=== PATIENT | female | born 1980 | race Caucasian/White ===

== ENCOUNTER 2017-01-18 11:55 | Emergency (ER) | payer SELFPAY ==
[~2017-01-18] VITALS: Ht 167.6 cm; Wt 90.0 kg
[~2017-01-18 11:55] MED LIST: CLON.2 PO; METH40TA9 PO; PHEN37.5 PO; PROM25TA5 PO; SYNT300T PO; XANA1TAB6 PO
[2017-01-18 11:57] VITALS: BP 141/87; PULSE 89; RESP 20; TEMP 97.8; O2SAT 97
[2017-01-18] MEDS ORDERED: SODIUM CHLOR 0.9% 1000 ML INJ 1,000 ML IV SCH (12:23)
[2017-01-18] MEDS ORDERED: XANA2TAB2 PO (12:25)
[2017-01-18] MEDS ORDERED: KETOROLAC TROMETHAMINE 30 MG/ML (IVP) VIAL IVP ONE (12:30)
[2017-01-18] MEDS ORDERED: SODIUM CHLORIDE 0.9% FLUSH 5 ML FLUSH IVF PRN (12:30)
[2017-01-18] MEDS ORDERED: ONDANSETRON HCL 4 MG/2 ML VIAL IVP ONE (12:30)
--- NOTE | 2017-01-18 12:42 | PD ---
HPI Chief Complaint: GI Complaint Time Seen by Provider: 12:14 Travel History International Travel<30 days: No Contact w/Intl Traveler<30days: No Traveled to known affect area: No History of Present Illness HPI This is a 36-year-old female presents with epigastric pain sharp since 0400 this morning. SHe comes in with nausea and vomiting production of yellow stomach acid. No fevers no change in bowel habits no vaginal bleeding or vaginal discharge or painful urination. Patient dishes never had these symptoms in the past. Denies change in bowel habits. States the pain is sharp and radiates to her back. PFSH Past Medical History Arthritis: No Asthma: No Heart Rhythm Problems: No Cardiovascular Problems: No High Cholesterol: No Chest Pain: No Congestive Heart Failure: No COPD: No Cerebrovascular Accident: No Diminished Hearing: No Fibromyalgia: Yes Gastrointestinal Disorders: No GERD: Yes Genitourinary: Yes Headaches: Yes Hepatitis: No Hiatal Hernia: No Hypertension: No Kidney Stones: Yes Musculoskeletal: Yes (NECK) Neurologic: Yes Reproductive: Yes Respiratory: No Migraines: Yes Myocardial Infarction: No Renal Failure: No Seizures: No Sleep Apnea: No Ulcer: No ?: Not LMP: CURRENTLY ON PERIOD Menopausal: No : 3 Para: 0 Miscarriage: 1 : 2 Dilation and Curettage (D&C): Yes Past Surgical History Abdominal Surgery: No Appendectomy: No Cardiac Surgery: No Cholecystectomy: No Ear Surgery: No Endocrine Surgery: No Eye Surgery: No Genitourinary Surgery: No Gynecologic Surgery: Yes (DNC) Neurologic Surgery: No Oral Surgery: Yes (TOOTH EXTRACTIONS) Thoracic Surgery: No Social History Alcohol Use: No Tobacco Use: Yes (5 cigs/day) Substance Use: Yes (methadone hx) Allergies-Medications (Allergen,Severity, Reaction): Coded Allergies: No Known Allergies (Verified , 03/05/16) Reported Meds & Prescriptions Reported Meds & Active Scripts Active Zofran Odt (Ondansetron Odt) 4 Mg Tab 4 Mg SL Q6HR PRN Reported Xanax (Alprazolam) 2 Mg Tab 2 Mg PO DAILY PRN Review of Systems Except as stated in HPI: all other systems reviewed are Neg Physical Exam Narrative GENERAL: Well-developed well-nourished, vomiting yellow material in the emergency department. SKIN: Warm and dry. HEAD: Atraumatic. Normocephalic. EYES: Pupils equal and round. No scleral icterus. No injection or drainage. ENT: No nasal bleeding or discharge. Mucous membranes pink and moist. NECK: Trachea midline. No JVD. CARDIOVASCULAR: Regular rate and rhythm. No murmur appreciated. RESPIRATORY: No accessory muscle use. Clear to auscultation. Breath sounds equal bilaterally. GASTROINTESTINAL: Abdomen soft, minimally tender in epigastric area, nondistended. Hepatic and splenic margins not palpable. No rebound no percussive tenderness, psoas and obturator signs negative, Ferro sign negative , no tenderness at McBurney's point. MUSCULOSKELETAL: No obvious deformities. No clubbing. No cyanosis. No edema. NEUROLOGICAL: Awake and alert. No obvious cranial nerve deficits. Motor grossly within normal limits. Normal speech. PSYCHIATRIC: Appropriate mood and affect; insight and judgment normal. Data Data Last Documented VS Vital Signs Date Time Temp Pulse Resp B/P Pulse Ox O2 Delivery O2 Flow Rate FiO2 01/18/17 12:25 Room Air 01/18/17 11:57 97.8 89 20 141/87 97 Orders Complete Blood Count With Diff (01/18/17 12:23) Comprehensive Metabolic Panel (01/18/17 12:23) Lipase (01/18/17 12:23) Lactic Acid (01/18/17 12:23) Prothrombin Time / Inr (Pt) (01/18/17 12:23) Act Partial Throm Time (Ptt) (01/18/17 12:23) Urinalysis - C+S If Indicated (01/18/17 12:23) Iv Access Insert/Monitor (01/18/17 12:23) Ecg Monitoring (01/18/17 12:23) Oximetry (01/18/17 12:23) Ondansetron Inj (Zofran Inj) (01/18/17 12:30) Sodium Chlor 0.9% 1000 Ml Inj (Ns 1000 M (01/18/17 12:23) Sodium Chloride 0.9% Flush (Ns Flush) (01/18/17 12:30) Ketorolac Inj (Toradol Inj) (01/18/17 12:30) Ed Urine Pregnancytest Poc (01/18/17 12:23) Sodium Chlor 0.9% 1000 Ml Inj (Ns 1000 M (01/18/17 13:30) Ed Poc Ultrasound (01/18/17 ) Electrocardiogram (01/18/17 12:38) Labs Laboratory Tests Test 01/18/17 01/18/17 12:30 13:45 White Blood Count 12.1 TH/MM3 Red Blood Count 5.15 MIL/MM3 Hemoglobin 14.7 GM/DL Hematocrit 44.5 % Mean Corpuscular Volume 86.4 FL Mean Corpuscular Hemoglobin 28.6 PG Mean Corpuscular Hemoglobin 33.1 % Concent Red Cell Distribution Width 13.9 % Platelet Count 292 TH/MM3 Mean Platelet Volume 9.1 FL Neutrophils (%) (Auto) 70.6 % Lymphocytes (%) (Auto) 22.6 % Monocytes (%) (Auto) 5.4 % Eosinophils (%) (Auto) 0.7 % Basophils (%) (Auto) 0.7 % Neutrophils # (Auto) 8.6 TH/MM3 Lymphocytes # (Auto) 2.7 TH/MM3 Monocytes # (Auto) 0.7 TH/MM3 Eosinophils # (Auto) 0.1 TH/MM3 Basophils # (Auto) 0.1 TH/MM3 CBC Comment DIFF FINAL Differential Comment Prothrombin Time 11.4 SEC Prothromb Time International 1.0 RATIO Ratio Activated Partial 26.1 SEC Thromboplast Time Sodium Level 141 MEQ/L Potassium Level 3.2 MEQ/L Chloride Level 105 MEQ/L Carbon Dioxide Level 27.1 MEQ/L Anion Gap 9 MEQ/L Blood Urea Nitrogen 12 MG/DL Creatinine 1.07 MG/DL Estimat Glomerular Filtration 57 ML/MIN Rate Random Glucose 96 MG/DL Lactic Acid Level 1.6 mmol/L Calcium Level 9.0 MG/DL Total Bilirubin 0.4 MG/DL Aspartate Amino Transf 7 U/L (AST/SGOT) Alanine Aminotransferase 18 U/L (ALT/SGPT) Alkaline Phosphatase 59 U/L Total Protein 7.5 GM/DL Albumin 4.2 GM/DL Lipase 194 U/L Urine Color YELLOW Urine Turbidity HAZY Urine pH 6.0 Urine Specific [place] 1.023 Urine Protein TRACE mg/dL Urine Glucose (UA) NEG mg/dL Urine Ketones NEG mg/dL Urine Occult Blood TRACE Urine Nitrite NEG Urine Bilirubin NEG Urine Urobilinogen LESS THAN 2.0 MG/DL Urine Leukocyte Esterase NEG Urine RBC 3 /hpf Urine WBC 4 /hpf Urine Squamous Epithelial 2 /hpf Cells Urine Bacteria RARE /hpf Urine Mucus MANY /lpf Microscopic Urinalysis Comment CULT NOT INDICATED MDM Medical Decision Making Medical Screen Exam Complete: Yes Emergency Medical Condition: Yes Interpretation(s) EKG shows normal sinus rhythm normal axis normal R-wave progression. No concerning ST T changes, intervals within normal limits. This normal EKG. Differential Diagnosis Cholecystitis, pancreatitis, gastritis, gastroenteritis, . Narrative Course Patient was roomed in the emergency department, she was given Zofran and normal saline as well as Toradol. On reassessment she states her symptoms of completely resolved. On further history the patient states that she smoked some marijuana last night which she was not quite sure was marijuana. She thinks this might have contributed to her nausea. Patient also states she's not had her methadone in 3 months She is trying to give it up. She is wondering if she still withdrawing off of methadone. Her CBC and CMP are completely reassuring. UA and urine test negative. Her repeat abdominal exam is benign. Patient is stable for discharge at this time recommended follow-up with Gen. surgery as biliary colic is a possibility however there is no convincing evidence for cholecystitis. Per Procedures Procedure Narrative Bedside ultrasound: Is obtained of the gallbladder and the patient in supine position, ultrasonic graphic Ferro sign was negative, there are for non- impacted gallstones, no gallbladder wall thickening and no pericholecystic fluid. Diagnosis Primary Impression: Nausea & vomiting Qualified Code: R11.2 - Nausea and vomiting, intractability of vomiting not specified, unspecified vomiting type Referrals: Morales Dsouza MD Scripts Ondansetron Odt (Zofran Odt)4 Mg Tab4 Mg SL Q6HR PRN (Nausea/Vomiting) #30 TAB Ref 0 Prov:Israel Canela MD 01/18/17 Disposition: 01 DISCHARGE HOME Condition: Stable Israel Canela MD Jan 18, 2017 12:42
[2017-01-18 12:48] LABS: AUTOMATED NEUTROPHIL # 8.6 TH/MM3 (1.8-7.7); BASOPHIL # 0.1 TH/MM3 (0-0.2); BASOPHIL % 0.7 % (0.0-2.0); EOSINOPHIL # 0.1 TH/MM3 (0-0.4); EOSINOPHIL % 0.7 % (0.0-4.0); HEMATOCRIT 44.5 % (35.0-46.0); HEMO FLAGS DIFF FINAL; LYMPH % 22.6 % (9.0-44.0); LYMPHOCYTE # 2.7 TH/MM3 (1.0-4.8); MEAN CELL VOLUME 86.4 FL (80.0-100.0); MEAN CORPUSCULAR HEMOGLOBIN 28.6 PG (27.0-34.0); MEAN CORPUSCULAR HGB CONC 33.1 % (32.0-36.0); MONO % 5.4 % (0.0-8.0); NEUT % 70.6 % (16.0-70.0); PLATELET COUNT 292 TH/MM3 (150-450); RED BLOOD COUNT 5.15 MIL/MM3 (4.00-5.30); RED CELL DISTRIBUTION WIDTH 13.9 % (11.6-17.2); WHITE BLOOD COUNT 12.1 TH/MM3 (4.0-11.0)
[2017-01-18 12:59] LABS: ALT (GPT) 18 U/L (10-53); ANION GAP 9 MEQ/L (5-15); AST (GOT) 7 U/L (15-37); BICARBONATE 27.1 MEQ/L (21.0-32.0); BLOOD UREA NITROGEN 12 MG/DL (7-18); CHLORIDE 105 MEQ/L (98-107); GLOMERULAR FILTRATION RATE 57 ML/MIN (>89); POTASSIUM 3.2 MEQ/L (3.5-5.1); SODIUM (NA) 141 MEQ/L (136-145)
[2017-01-18 13:00] LABS: APTT (PATIENT) 26.1 SEC (24.3-30.1); PROTHROMBIN TIME - PATIENT 11.4 SEC (9.8-11.6)
[2017-01-18 13:02] LABS: ALKALINE PHOSPHATASE 59 U/L (45-117); TOTAL BILIRUBIN ADULT 0.4 MG/DL (0.2-1.0)
[2017-01-18] MEDS ORDERED: SODIUM CHLOR 0.9% 1000 ML INJ 1,000 ML IV ONE (13:30)
[2017-01-18 14:18] LABS: BACTERIA, URINE RARE /hpf; BLOOD, URINE TRACE (NEG); GLUCOSE,URINE NEG (NEG); KETONE, URINE NEG (NEG); MUCUS URINE MANY /lpf (OCC); NITRITE,URINE NEG (NEG); SQUAMOUS EPITHELIAL CELL URINE 2 /hpf (0-5); URINE COLOR YELLOW (YELLW/STRAW)
[2017-01-18 14:24] LABS: COMMENT (UR) CULT NOT INDICATED; CULTURE IF INDICATED CULT NOT INDICATED
[2017-01-18] MEDS ORDERED: ZOFR4TAB3 SL (14:52)
--- NOTE | 2017-01-19 14:11 | EKG ---
Date Performed: 01/18/2017 Time Performed: 12:38:50 PTAGE: 36 years EKG: Sinus bradycardia Within normal limits Compared to PREVIOUS TRACING no significant change PREVIOUS TRACIN08/05/09 DOCTOR: Tanner Blanchard Interpretating Date/Time 01/19/2017 14:10:32
[2017-01-19] MEDS ORDERED: IBUP-988 PO (17:31)
[2017-01-19] MEDS ORDERED: GNP3TAB PO (17:31)
== END 2017-01-18 16:34 | disposition home or self-care (01) ==
LOC: NEPB 11:55
DX: R11.2 Nausea with vomiting, unspecified (principal); R10.13 Epigastric pain; Z72.0 Tobacco use; M79.7 Fibromyalgia; K21.9 Gastro-esophageal reflux disease without esophagitis; Z87.442 Personal history of urinary calculi
CPT/HCPCS: 80053; 81001; 83605; 83690; 84703; 85025; 85610; 85730; 93005; 96361; 96374; 96375; 99284; J1885; J2405; J7030

== ENCOUNTER 2017-01-19 15:56 | Inpatient (IN) | payer OTHER ==
[~2017-01-19] VITALS: Ht 167.6 cm; Wt 86.0 kg
[~2017-01-19 15:56] MED LIST changes: -CLON.2 PO; -METH40TA9 PO; -PHEN37.5 PO; -PROM25TA5 PO; -SYNT300T PO; -XANA1TAB6 PO; +XANA2TAB2 PO; +ZOFR4TAB3 SL
[2017-01-19 16:11] VITALS: BP 133/83; PULSE 89; RESP 18; TEMP 98; O2SAT 99
--- NOTE | 2017-01-19 16:34 | PD ---
HPI Chief Complaint: Psychiatric Symptoms Time Seen by Provider: 16:10 Travel History International Travel<30 days: No Contact w/Intl Traveler<30days: No Traveled to known affect area: No History of Present Illness HPI 36-year-old female presents under [place] act initiated by the Police Department. The patient reports that she's been under a lot of stress recently in regards to her being situation. Today she had an argument with her fianc. After her fianc left the patient is feeling depressed she's had some text messages to her fianc implying that she was going to kill herself. The fianc called the police. He fei was concerned that she may try to overdose on some sleeping medication. She reports that she is prescribed Xanax which did take her normal 1 mg dose today. She also occasionally uses melatonin Tylenol PM for sleeping but denies any ingestions of these today. She denies any attempts at harming herself today. Denies any illicit drug or alcohol use. Her only medical complaint is of intermittent right upper quadrant abdominal pain for the past 3 months. The patient was seen here yesterday for evaluation of this issue. She had lab work and a bedside ultrasound there was no evidence of cholecystitis on ultrasound. She has no other complaints. PFSH Past Medical History Arthritis: No Asthma: No Heart Rhythm Problems: No Cardiovascular Problems: No High Cholesterol: No Chest Pain: No Congestive Heart Failure: No COPD: No Cerebrovascular Accident: No Diminished Hearing: No Fibromyalgia: Yes Gastrointestinal Disorders: No GERD: Yes Genitourinary: Yes Headaches: Yes Hepatitis: No Hiatal Hernia: No Hypertension: No Kidney Stones: Yes Musculoskeletal: Yes (NECK) Neurologic: Yes Reproductive: Yes Respiratory: No Migraines: Yes Myocardial Infarction: No Renal Failure: No Seizures: No Sleep Apnea: No Ulcer: No ?: Not LMP: 01/14/17 Menopausal: No : 3 Para: 0 Miscarriage: 1 : 2 Dilation and Curettage (D&C): Yes Past Surgical History Abdominal Surgery: No Appendectomy: No Cardiac Surgery: No Cholecystectomy: No Ear Surgery: No Endocrine Surgery: No Eye Surgery: No Genitourinary Surgery: No Gynecologic Surgery: Yes (DNC) Neurologic Surgery: No Oral Surgery: Yes (TOOTH EXTRACTIONS) Thoracic Surgery: No Social History Alcohol Use: No Tobacco Use: Yes (5 cigs/day) Substance Use: Yes (methadone hx) Allergies-Medications (Allergen,Severity, Reaction): Coded Allergies: No Known Allergies (Verified , 01/19/17) Reported Meds & Prescriptions Reported Meds & Active Scripts Active Zofran Odt (Ondansetron Odt) 4 Mg Tab 4 Mg SL Q6HR PRN Reported Advil (Ibuprofen) 200 Mg Tab 800 Mg PO TID PRN Gnp Melatonin (Melatonin) 3 Mg Tab 3 Mg PO HS Xanax (Alprazolam) 2 Mg Tab 2 Mg PO DAILY PRN Review of Systems Except as stated in HPI: all other systems reviewed are Neg Physical Exam Narrative GENERAL: Well-nourished female in no acute distress SKIN: Warm and dry. HEAD: Atraumatic. Normocephalic. EYES: Pupils equal and round. No scleral icterus. No injection or drainage. ENT: No nasal bleeding or discharge. Mucous membranes pink and moist. NECK: Trachea midline. No JVD. CARDIOVASCULAR: Regular rate and rhythm. No murmur appreciated. RESPIRATORY: No accessory muscle use. Clear to auscultation. Breath sounds equal bilaterally. GASTROINTESTINAL: Abdomen soft, mild right upper quadrant tenderness without guarding. MUSCULOSKELETAL: No obvious deformities. No edema. NEUROLOGICAL: Awake and alert. No obvious cranial nerve deficits. Motor grossly within normal limits. Normal speech. PSYCHIATRIC: Appropriate mood and affect; insight and judgment normal. Data Data Last Documented VS Vital Signs Date Time Temp Pulse Resp B/P Pulse Ox O2 Delivery O2 Flow Rate FiO2 01/19/17 16:16 72 01/19/17 16:11 98.0 18 133/83 99 Orders Complete Blood Count With Diff (01/19/17 16:15) Comprehensive Metabolic Panel (01/19/17 16:15) Psych Screen (01/19/17 16:15) Drug Screen, Random Urine (01/19/17 16:15) Alcohol (Ethanol) (01/19/17 16:15) Salicylates (Aspirin) (01/19/17 16:15) Tylenol (Acetaminophen) (01/19/17 16:15) Us Abdomen Gallbladder (01/19/17 ) Piperacil-Tazo 3.375 Gm Premix (Zosyn 3. (01/19/17 18:00) Ondansetron Inj (Zofran Inj) (01/19/17 18:00) Sodium Chlor 0.9% 1000 Ml Inj (Ns 1000 M (01/19/17 17:58) Consult General Surgery (01/19/17 ) (Hub Use Only)Inp Phy Cons/Ref (01/19/17 ) Morphine Inj (Morphine Inj) (01/19/17 19:00) Labs Laboratory Tests Test 01/19/17 01/19/17 17:00 19:20 White Blood Count 8.1 TH/MM3 Red Blood Count 4.68 MIL/MM3 Hemoglobin 13.9 GM/DL Hematocrit 40.6 % Mean Corpuscular Volume 86.8 FL Mean Corpuscular Hemoglobin 29.8 PG Mean Corpuscular Hemoglobin 34.3 % Concent Red Cell Distribution Width 14.2 % Platelet Count 266 TH/MM3 Mean Platelet Volume 9.5 FL Neutrophils (%) (Auto) 58.6 % Lymphocytes (%) (Auto) 29.3 % Monocytes (%) (Auto) 6.8 % Eosinophils (%) (Auto) 4.1 % Basophils (%) (Auto) 1.2 % Neutrophils # (Auto) 4.7 TH/MM3 Lymphocytes # (Auto) 2.4 TH/MM3 Monocytes # (Auto) 0.5 TH/MM3 Eosinophils # (Auto) 0.3 TH/MM3 Basophils # (Auto) 0.1 TH/MM3 CBC Comment DIFF FINAL Differential Comment Sodium Level 143 MEQ/L Potassium Level 3.4 MEQ/L Chloride Level 105 MEQ/L Carbon Dioxide Level 27.9 MEQ/L Anion Gap 10 MEQ/L Blood Urea Nitrogen 7 MG/DL Creatinine 0.99 MG/DL Estimat Glomerular Filtration 63 ML/MIN Rate Random Glucose 78 MG/DL Calcium Level 8.7 MG/DL Total Bilirubin 0.6 MG/DL Aspartate Amino Transf 9 U/L (AST/SGOT) Alanine Aminotransferase 17 U/L (ALT/SGPT) Alkaline Phosphatase 63 U/L Total Protein 6.9 GM/DL Albumin 3.4 GM/DL Salicylates Level LESS THAN 1.7 MG/DL Acetaminophen Level LESS THAN 2.0 MCG/ML Ethyl Alcohol Level LESS THAN 3 MG/DL Urine Opiates Screen NEG Urine Barbiturates Screen NEG Urine Amphetamines Screen NEG Urine Benzodiazepines Screen POS Urine Cocaine Screen POS Urine Cannabinoids Screen NEG MDM Medical Decision Making Medical Screen Exam Complete: Yes Emergency Medical Condition: Yes Medical Record Reviewed: Yes Differential Diagnosis Adjustment reaction, major depressive disorder, acute psychosis, substance- induced disorder, depressive disorder not otherwise specified Narrative Course 36-year-old female presents under a [place] act for psychiatric evaluation. Mental health screening discussed with the patient. Psychiatric screen ordered. The patient's right upper quadrant ultrasound suspicious for cholecystitis. Dr. Lockett was counseled that he will come see the patient. Dr. Lockett will be consulted on this patient. She was given a dose of IV Zosyn. The patient was admitted medically. Diagnosis Primary Impression: Cholecystitis Admitting Information Admitting Physician Requests: Observation Patrice Vargas Jan 19, 2017 16:34
[2017-01-19 17:24] LABS: AUTOMATED NEUTROPHIL # 4.7 TH/MM3 (1.8-7.7); BASOPHIL # 0.1 TH/MM3 (0-0.2); BASOPHIL % 1.2 % (0.0-2.0); EOSINOPHIL # 0.3 TH/MM3 (0-0.4); EOSINOPHIL % 4.1 % (0.0-4.0); HEMATOCRIT 40.6 % (35.0-46.0); HEMO FLAGS DIFF FINAL; LYMPH % 29.3 % (9.0-44.0); LYMPHOCYTE # 2.4 TH/MM3 (1.0-4.8); MEAN CELL VOLUME 86.8 FL (80.0-100.0); MEAN CORPUSCULAR HEMOGLOBIN 29.8 PG (27.0-34.0); MEAN CORPUSCULAR HGB CONC 34.3 % (32.0-36.0); MONO % 6.8 % (0.0-8.0); NEUT % 58.6 % (16.0-70.0); PLATELET COUNT 266 TH/MM3 (150-450); RED BLOOD COUNT 4.68 MIL/MM3 (4.00-5.30); RED CELL DISTRIBUTION WIDTH 14.2 % (11.6-17.2); WHITE BLOOD COUNT 8.1 TH/MM3 (4.0-11.0)
[2017-01-19] MEDS ORDERED: IBUP-988 PO (17:31)
[2017-01-19] MEDS ORDERED: GNP3TAB PO (17:31)
--- NOTE | 2017-01-19 17:44 | RADRPT ---
EXAM DATE/TIME: 01/19/2017 16:59 [facility] COMPARISON: No previous studies available for comparison. INDICATIONS : Right upper quadrant pain. MEDICAL HISTORY : Gastroesophageal reflux disease. . Renal calculi. Migraines. Ovarian cysts. x 2. Mi scarriage. Fibromyalgia. Post traumatic stress disorder. Suicide attempt. SURGICAL HISTORY : Dilation and currettage. Osteoma removal. ENCOUNTER: Initial ACUITY: 3 months PAIN SCORE: 6/10 LOCATION: Right upper quadrant MEASUREMENTS: LIVER: 15.2 cm length COMMON DUCT: 4 mm RIGHT KIDNEY: 10.4 x 5.3 x 5.4 cm FINDINGS: LIVER: Normal echotexture without focal lesion or ductal dilatation. COMMON DUCT: No intraluminal mass or stone visualized. GALLBLADDER: Multiple stones measuring up to 10 mm in size. There is thickening and edema of the gallbladder wall. Pericholecystic fluid demonstrated. No definite sonographic Ferro sign elicited. PANCREAS: The visualized portions are within normal limits. RIGHT KIDNEY: No evidence of hydronephrosis, stone, or mass. CONCLUSION: Stones, wall thickening and surrounding fluid of the gallbladder suggesting calculus cholecystitis in the proper clinical setting.. No evidence of acute biliary obstruction. Other right upper quadrant s tructures are within normal limits. Ishmael Neumann MD on January 19, 2017 at 17:40 Board Certified Radiologist. This report was verified electronically.
[2017-01-19 17:53] LABS: ALKALINE PHOSPHATASE 63 U/L (45-117); ALT (GPT) 17 U/L (10-53); ANION GAP 10 MEQ/L (5-15); AST (GOT) 9 U/L (15-37); BICARBONATE 27.9 MEQ/L (21.0-32.0); BLOOD UREA NITROGEN 7 MG/DL (7-18); CHLORIDE 105 MEQ/L (98-107); GLOMERULAR FILTRATION RATE 63 ML/MIN (>89); POTASSIUM 3.4 MEQ/L (3.5-5.1); SODIUM (NA) 143 MEQ/L (136-145); TOTAL BILIRUBIN ADULT 0.6 MG/DL (0.2-1.0)
[2017-01-19] MEDS ORDERED: SODIUM CHLOR 0.9% 1000 ML INJ 1,000 ML IV SCH (17:58)
[2017-01-19] MEDS ORDERED: ONDANSETRON HCL 4 MG/2 ML VIAL IV PUSH ONE (18:00)
[2017-01-19] MEDS ORDERED: PIPERACIL-TAZO 3.375 GM PREMIX 50 ML IV ONE (18:00)
[2017-01-19 18:04] LABS: ACETAMINOPHEN LESS THAN 2.0 MCG/ML (10.0-30.0)
--- NOTE | 2017-01-19 18:45 | PD ---
Physical Exam Date Seen by Provider: Jan 19, 2017 Time Seen by Provider: 16:30 Narrative I, Dr. Shea, have reviewed the advance practice practitioner's documentation and am in agreement, met with the patient face to face, made the diagnosis, and the medical decision making was done by me. *My assessment and Findings: Patient seen and evaluated with PA, please see PA note for further details. She was seen yesterday for nausea and vomiting, and today had been [place] acted for suicidal ideation. She is complaining of ongoing abdominal discomfort and the nausea and vomiting has still continued to be intermittent in nature. However, that is not her main complaint today. GENERAL: Well-nourished, well-developed young white female patient in no acute distress. Awake and oriented 3. SKIN: Warm and dry. HEAD: Normocephalic. EYES: No scleral icterus. No injection or drainage. NECK: Supple, trachea midline. CARDIOVASCULAR: Regular rate and rhythm without murmurs, gallops, or rubs. RESPIRATORY: Breath sounds equal bilaterally. No accessory muscle use. GASTROINTESTINAL: Abdomen soft, right upper quadrant tenderness with guarding but no rebound, positive Ferro sign, nondistended. MUSCULOSKELETAL: No cyanosis, or edema. BACK: Nontender without obvious deformity. No CVA tenderness. Laboratory Tests Test 01/19/17 17:00 Eosinophils (%) (Auto) 4.1 % (0.0-4.0) Potassium Level 3.4 MEQ/L (3.5-5.1) Estimat Glomerular Filtration 63 ML/MIN (>89) Rate Aspartate Amino Transf 9 U/L (15-37) (AST/SGOT) Salicylates Level LESS THAN 1.7 MG/DL (2.8-20.0) Acetaminophen Level LESS THAN 2.0 MCG/ML (10.0-30.0) On exam, she does have right upper quadrant tenderness concerning for underlying gallbladder disease. Right upper quadrant ultrasound was done which shows signs of cholecystitis. Lab work was otherwise unremarkable. Patient is stable in the ER with no signs of sepsis. At this point, the case was discussed with Dr. Lockett who states that patient will need surgical intervention but not in an emergent basis. He states that the patient can be followed up on Saturday for elective surgery. He states he will come to evaluate the patient as a consult. He states that the patient can be medically cleared for this particular issue. At this point, my plan would be to medically clear the patient for psychiatric evaluation. Yohannes acted. Data Data Last Documented VS Vital Signs Date Time Temp Pulse Resp B/P Pulse Ox O2 Delivery O2 Flow Rate FiO2 01/19/17 16:16 72 01/19/17 16:11 98.0 18 133/83 99 Orders Complete Blood Count With Diff (01/19/17 16:15) Comprehensive Metabolic Panel (01/19/17 16:15) Psych Screen (01/19/17 16:15) Drug Screen, Random Urine (01/19/17 16:15) Alcohol (Ethanol) (01/19/17 16:15) Salicylates (Aspirin) (01/19/17 16:15) Tylenol (Acetaminophen) (01/19/17 16:15) Us Abdomen Gallbladder (01/19/17 ) Piperacil-Tazo 3.375 Gm Premix (Zosyn 3. (01/19/17 18:00) Ondansetron Inj (Zofran Inj) (01/19/17 18:00) Sodium Chlor 0.9% 1000 Ml Inj (Ns 1000 M (01/19/17 17:58) Labs Laboratory Tests Test 01/19/17 17:00 White Blood Count 8.1 TH/MM3 Red Blood Count 4.68 MIL/MM3 Hemoglobin 13.9 GM/DL Hematocrit 40.6 % Mean Corpuscular Volume 86.8 FL Mean Corpuscular Hemoglobin 29.8 PG Mean Corpuscular Hemoglobin 34.3 % Concent Red Cell Distribution Width 14.2 % Platelet Count 266 TH/MM3 Mean Platelet Volume 9.5 FL Neutrophils (%) (Auto) 58.6 % Lymphocytes (%) (Auto) 29.3 % Monocytes (%) (Auto) 6.8 % Eosinophils (%) (Auto) 4.1 % Basophils (%) (Auto) 1.2 % Neutrophils # (Auto) 4.7 TH/MM3 Lymphocytes # (Auto) 2.4 TH/MM3 Monocytes # (Auto) 0.5 TH/MM3 Eosinophils # (Auto) 0.3 TH/MM3 Basophils # (Auto) 0.1 TH/MM3 CBC Comment DIFF FINAL Differential Comment Sodium Level 143 MEQ/L Potassium Level 3.4 MEQ/L Chloride Level 105 MEQ/L Carbon Dioxide Level 27.9 MEQ/L Anion Gap 10 MEQ/L Blood Urea Nitrogen 7 MG/DL Creatinine 0.99 MG/DL Estimat Glomerular Filtration 63 ML/MIN Rate Random Glucose 78 MG/DL Calcium Level 8.7 MG/DL Total Bilirubin 0.6 MG/DL Aspartate Amino Transf 9 U/L (AST/SGOT) Alanine Aminotransferase 17 U/L (ALT/SGPT) Alkaline Phosphatase 63 U/L Total Protein 6.9 GM/DL Albumin 3.4 GM/DL Salicylates Level LESS THAN 1.7 MG/DL Acetaminophen Level LESS THAN 2.0 MCG/ML Ethyl Alcohol Level LESS THAN 3 MG/DL [facility] Medical Record Reviewed: Yes Supervised Visit with TONY: Yes Diagnosis Primary Impression: Medical clearance for psychiatric admission Additional Impression: Cholecystitis Referrals: Memo Lockett MD Condition: Stable Lorelei Shea MD Jan 19, 2017 18:45
[2017-01-19] MEDS ORDERED: MORPHINE SULFATE 4 MG/ML INJ IV PUSH ONE (19:00)
[2017-01-19 19:38] LABS: AMPHETAMINE, URINE NEG (NEG); BARBITURATES, URINE NEG (NEG); COCAINE, URINE POS (NEG)
--- NOTE | 2017-01-19 19:44 | HHI.HP ---
[facility] No Primary Care Physician Admission Diagnosis cholecystitis Diagnoses: (1) Cholecystitis Diagnosis: Principal (2) Intractable nausea and vomiting Diagnosis: Principal (3) Suicidal ideation Diagnosis: Principal (4) Tobacco abuse Diagnosis: Principal Travel History International Travel<30 Days: No Contact w/Intl Traveler <30 Da: No Traveled to Known Affected Are: No History of Present Illness This is a 36-year-old female with a PMH of Fibromyalgia, Anxiety, Tobacco Abuse and Substance Abuse was brought to the ER by Police under [place] Act for Suicidal Ideation. Patient apparently got into an argument with fei and shortly afterwards texted him and told him she was going to kill herself. Fei concerned she may attempt overdose on sleeping pills, however pt denies this. States she took her Xanax 2mg x1. On further examination, pt relays having ongoing abdominal pain, nausea and vomiting x2 months, symptoms progressively more severe over last 1wk. Seen in ER on 01/18/17 for abdominal pain, nausea/ vomiting, s/p Zofran/Toradol w/ improvement, bedside US negative for stones of gallbladder wall thickening per ER doc note, d/c'd home w/ Zofran and referral to Gen Surgery. Reports symptoms persistent. On arrival, BP 133/83, HR 89, O2 sat 99% on RA, Afebrile. CBC unremarkable. K+ 3.4. LFTs normal. U/a negative for UTI. US Gallbladder w/ stones, wall thickening and surrounding fluid suggestive of calculous cholecystitis. Dr. Lockett consulted by ER physician, will evaluate, no emergent surgical intervention at this time. S/p Zofran and Zosyn in ER, symptoms improved. Review of Systems Except as stated in HPI: all other systems reviewed are Neg ROS: 14 point review of systems otherwise negative. Past Family Social History Past Medical History PMH: Fibromyalgia, Anxiety, Tobacco Abuse and Substance Abuse Past Surgical History PAST SURGICAL HISTORY: D&C, Dental Extraction Allergies: Coded Allergies: No Known Allergies (Verified , 01/19/17) Family History PAST FAMILY HISTORY: Reviewed. No h/o DM or CAD Social History PAST SOCIAL HISTORY: Negative for alcohol. Smokes 1/2ppd. Positive for Substance Abuse. Physical Exam Vital Signs Vital Signs Date Time Temp Pulse Resp B/P Pulse Ox O2 Delivery O2 Flow Rate FiO2 01/19/17 16:16 72 01/19/17 16:11 98.0 89 18 133/83 99 Physical Exam PE: GENERAL: Pleasant middle-aged white female in no acute distress. HEENT: PERRLA, EOMI. No scleral icterus or conjunctival pallor. No lid lag or facial droop. CARDIOVASCULAR: Regular rate and rhythm. No obvious murmurs to auscultation. No chest tenderness to palpation. RESPIRATORY: No obvious rhonchi or wheezing. Clear to auscultation. Breath sounds equal bilaterally. GASTROINTESTINAL: Abdomen soft, mild epigastric/RUQ tenderness to palpation, nondistended. BS normal. MUSCULOSKELETAL: Extremities without clubbing, cyanosis, or edema. No obvious deformities. NEUROLOGICAL: Awake, alert and oriented x4. No focal neurologic deficits. Moving both upper and lower extremities spontaneously. Laboratory Laboratory Tests Test 01/19/17 17:00 White Blood Count 8.1 Red Blood Count 4.68 Hemoglobin 13.9 Hematocrit 40.6 Mean Corpuscular Volume 86.8 Mean Corpuscular Hemoglobin 29.8 Mean Corpuscular Hemoglobin 34.3 Concent Red Cell Distribution Width 14.2 Platelet Count 266 Mean Platelet Volume 9.5 Neutrophils (%) (Auto) 58.6 Lymphocytes (%) (Auto) 29.3 Monocytes (%) (Auto) 6.8 Eosinophils (%) (Auto) 4.1 Basophils (%) (Auto) 1.2 Neutrophils # (Auto) 4.7 Lymphocytes # (Auto) 2.4 Monocytes # (Auto) 0.5 Eosinophils # (Auto) 0.3 Basophils # (Auto) 0.1 CBC Comment DIFF FINAL Differential Comment Sodium Level 143 Potassium Level 3.4 Chloride Level 105 Carbon Dioxide Level 27.9 Anion Gap 10 Blood Urea Nitrogen 7 Creatinine 0.99 Estimat Glomerular Filtration 63 Rate Random Glucose 78 Calcium Level 8.7 Total Bilirubin 0.6 Aspartate Amino Transf 9 (AST/SGOT) Alanine Aminotransferase 17 (ALT/SGPT) Alkaline Phosphatase 63 Total Protein 6.9 Albumin 3.4 Salicylates Level LESS THAN 1.7 Acetaminophen Level LESS THAN 2.0 Ethyl Alcohol Level LESS THAN 3 Result Diagram: 01/19/17 1700 01/19/17 1700 Assessment and Plan Problem List: (1) Intractable nausea and vomiting ICD Code: R11.2 Status: Acute (2) Cholecystitis ICD Code: K81.9 Status: Acute (3) Suicidal ideation ICD Code: R45.851 Status: Acute (4) Tobacco abuse ICD Code: Z72.0 Status: Acute Assessment and Plan A/P: 1. Intractable N/V: w/ associated abdominal pain, symptoms ongoing x2-3 months , seen in ER 01/18/17, bedside US negative per ER doc note, labs essentially unremarkable, pt d/c'd w/ Zofran and referral for General Sx, returns now w/ ongoing pain, nausea/vomiting. LFTs normal. Analgesics/antiemetics as needed 2. Cholecystitis: Gallbladder US w/ stones, wall thickening and surrounding fluid suggesting calculous cholecystitis, images reviewed by me. Dr. Lockett consulted by ER physician, no emergent surgical intervention, will eval in am. S/p Zosyn in ER, continue Zosyn for empiric coverage. 3. Suicidal Ideation: brought to ER by Police under [place] Act for suicidal ideation, pt denies harming herself. Psych consult for further eval. 4. Tobacco Abuse: Pt counselled. Ativan/NicoDerm prn if needed. 5. DVT Prophylaxis: SCD/Teds. 6. Social work for d/c planning as needed. 7. Case discussed w/ ER physician at length. Physician Certification 2 Midnight Certification Type: Admission for Inpatient Services Order for Inpatient Services The services are ordered in accordance with Medicare regulations or non- Medicare payer requirements, as applicable. In the case of services not specified as inpatient-only, they are appropriately provided as inpatient services in accordance with the 2-midnight benchmark. Estimated LOS (days): 2 days is the estimated time the patient will need to remain in the hospital, assuming treatment plan goals are met and no additional complications. Post-Hospital Plan: Not yet determined Mikayal Dale MD Jan 19, 2017 19:44
[2017-01-19] MEDS ORDERED: SODIUM CHLORIDE 0.9% FLUSH 5 ML FLUSH FLUSH PRN (19:45)
[2017-01-19] MEDS ORDERED: ACETAMINOPHEN 325 MG TAB PO PRN (19:45)
[2017-01-19] MEDS ORDERED: BISACODYL 10 MG SUPP PR PRN (19:45)
[2017-01-19 20:30] VITALS: BP 118/60; PULSE 59; RESP 14; O2SAT 99
--- NOTE | 2017-01-19 22:02 | MB ---
cc: NIKI MORGAN DATE OF CONSULTATION 01/19/17 REASON FOR CONSULTATION Cholecystitis HISTORY OF PRESENT ILLNESS The patient is a 36-year-old female who was Sheffield Acted today for suicidal ideation. The patient questionably took her sleeping pills and this is being further evaluated. The patient related to the undersigned that she has had an over 3-month history of right upper quadrant and epigastric pain, but has "not been able to get in to see a doctor" and thus has been managing with it. She was seen yesterday in this emergency room for nausea and vomiting and was sent home. The patient reported her pain today, an ultrasound was obtained, and she now has cholecystitis by exam and by imaging. However, the patient states that her symptoms have been present but has just gotten worse and worse. PAST MEDICAL HISTORY 1. Depression and anxiety. The patient takes Xanax, ibuprofen and melatonin. 2. Fibromyalgia, 3. Tobacco abuse and substance abuse. PAST SURGICAL HISTORY 1. D&C 2. Dental extraction 3. Left knee surgery for a cyst on the knee. ALLERGIES She has no known allergies. SOCIAL HISTORY She smokes one half-pack per day of cigarettes and substance abuse in the past. PHYSICAL EXAMINATION GENERAL: An obese female who is somewhat tearful. VITAL SIGNS: BP 133/83, pulse 89, respirations 18, temperature 98.0, 99% saturation on room air. HEENT: Sclerae anicteric. Pupils reactive. Chest is clear to auscultation. CARDIAC: Regular rate and rhythm. ABDOMEN: Soft with tenderness in the epigastrium and right upper quadrant. There are no scars on the abdomen. There are no hernias noted. There is some minimal tenderness in the left upper quadrant. There is also some tenderness in the right lower quadrant to deep palpation. EXTREMITIES: are intact. NEUROLOGIC: Nonfocal except for the patient's tearfulness. She is able to answer questions and is otherwise appropriate. LABORATORY FINDINGS WBCs are normal at 8.1, platelets 266,000. Chemistries - sodium 143, potassium 3.4, BUN and creatinine are normal at 7 and 0.99, AST normal at 9, ALT normal at 17, alkaline phosphatase 63, total bilirubin 0.6. Toxicology screen is positive for benzodiazepines and cocaine. Acetaminophen level was less than two, alcohol level was less than three. Salicylates less than 1.7. Urine opiate screen is negative as is barbiturates, amphetamines and cannabinoids. IMAGING STUDIES Gallbladder ultrasound demonstrates non-dilated common duct, no intraluminal mass or stone is visualized, multiple stones in the gallbladder seen with some thickening and edema of the gallbladder wall with pericholecystic fluid identified. No definite sonographic Ferro sign was elicited. There is no evidence of acute biliary obstruction. ASSESSMENT 1. Cholecystitis, chronic and ongoing with increasing symptoms. 2. [place] Act due to suicidal ideation. Once this has been squared away and the patient has been given medications to assist with this, we will contemplate surgical procedure. It is Saturday evening and there is not capacity in the operating room for an urgent case at this time. The patient will likely have surgery on Saturday if she is still in the hospital. I have discussed this with her and will go over risks and benefits tomorrow. She vocalizes understanding of this. MD MITCHEL Montano/ /9:09 PM /9:39 PM MTDD
[2017-01-19] MEDS: SODIUM CHLORIDE 0.9% FLUSH 5 ML FLUSH FLUSH SCH (22:03)
[2017-01-19] MEDS: SODIUM CHLOR 0.9% 1000 ML INJ 1,000 ML IV SCH (22:21)
[2017-01-19] MEDS: MORPHINE SULFATE 4 MG/ML INJ IV PRN (22:22)
[2017-01-19] MEDS: PANTOPRAZOLE SODIUM 40 MG VIAL IV PUSH SCH (22:22)
[2017-01-20 00:09] VITALS: BP 127/76; PULSE 54; RESP 20; TEMP 96; O2SAT 99
[2017-01-20] MEDS: PIPERACIL-TAZO 4.5 GM PREMIX 100 ML IV SCH ×5 (00:47→22:10)
[2017-01-20] MEDS: ONDANSETRON HCL 4 MG/2 ML VIAL IVP PRN ×3 (00:51→13:14)
[2017-01-20] MEDS: MORPHINE SULFATE 4 MG/ML INJ IV PRN ×6 (01:43→23:30)
[2017-01-20 05:56] LABS: AUTOMATED NEUTROPHIL # 3.8 TH/MM3 (1.8-7.7); BASOPHIL # 0.1 TH/MM3 (0-0.2); BASOPHIL % 1.2 % (0.0-2.0); EOSINOPHIL # 0.4 TH/MM3 (0-0.4); EOSINOPHIL % 4.6 % (0.0-4.0); HEMATOCRIT 37.1 % (35.0-46.0); HEMO FLAGS DIFF FINAL; LYMPH % 43.2 % (9.0-44.0); LYMPHOCYTE # 3.7 TH/MM3 (1.0-4.8); MEAN CELL VOLUME 87.3 FL (80.0-100.0); MEAN CORPUSCULAR HGB CONC 33.2 % (32.0-36.0); MONO % 6.6 % (0.0-8.0); NEUT % 44.4 % (16.0-70.0); PLATELET COUNT 229 TH/MM3 (150-450); RED BLOOD COUNT 4.25 MIL/MM3 (4.00-5.30); RED CELL DISTRIBUTION WIDTH 13.7 % (11.6-17.2); WHITE BLOOD COUNT 8.6 TH/MM3 (4.0-11.0)
[2017-01-20 06:13] LABS: ALKALINE PHOSPHATASE 51 U/L (45-117); ALT (GPT) 15 U/L (10-53); ANION GAP 9 MEQ/L (5-15); AST (GOT) 8 U/L (15-37); BICARBONATE 26.2 MEQ/L (21.0-32.0); BLOOD UREA NITROGEN 8 MG/DL (7-18); CHLORIDE 108 MEQ/L (98-107); GLOMERULAR FILTRATION RATE 61 ML/MIN (>89); POTASSIUM 3.2 MEQ/L (3.5-5.1); SODIUM (NA) 143 MEQ/L (136-145); TOTAL BILIRUBIN ADULT 0.5 MG/DL (0.2-1.0)
[2017-01-20] MEDS: SODIUM CHLOR 0.9% 1000 ML INJ 1,000 ML IV SCH ×3 (06:25→22:58)
[2017-01-20 08:00] VITALS: BP 100/64; PULSE 53; RESP 17; TEMP 96.3; O2SAT 97
[2017-01-20] MEDS: PANTOPRAZOLE SODIUM 40 MG VIAL IV PUSH SCH ×2 (08:16→19:34)
[2017-01-20] MEDS: SODIUM CHLORIDE 0.9% FLUSH 5 ML FLUSH FLUSH SCH ×2 (08:16→19:35)
[2017-01-20] MEDS ORDERED: INFLUENZA VIRUS VACCINE (QUADRIVALENT) 0.5 ML SYR IM ONE (09:00)
--- NOTE | 2017-01-20 09:59 | HHI.PR ---
Subjective Remarks resting comfortably with no distress. abdominal pain and nausea is better. has some anxiety. no fever. d/w the RN. Objective Vitals Vital Signs Date Time Temp Pulse Resp B/P Pulse Ox O2 Delivery O2 Flow Rate FiO2 01/20/17 08:00 96.3 53 17 100/64 97 01/20/17 00:09 96.0 54 20 127/76 99 01/19/17 20:30 59 14 118/60 99 Room Air 01/19/17 16:16 72 01/19/17 16:11 98.0 89 18 133/83 99 I/O 01/19/17 01/19/17 01/19/17 01/20/17 01/20/17 01/20/17 07:00 15:00 23:00 07:00 15:00 23:00 Intake Total 826 ml Balance 826 ml Intake Oral 120 ml IV Total 706 ml # Voids 2 # Bowel Movements 0 Result Diagram: 01/20/17 0441 01/20/17 0441 Imaging Last Impressions Gall Bladder Ultrasound 01/19/17 0000 Signed Impressions: Service Date/Time: Thursday, January 19, 2017 16:59 - CONCLUSION: Stones, wall thickening and surrounding fluid of the gallbladder suggesting calculus cholecystitis in the proper clinical setting.. No evidence of acute biliary obstruction. Other right upper quadrant structures are within normal limits. Ishmael Neumann MD Objective Remarks GENERAL: This is a well-nourished, well-developed patient, in no apparent distress. CARDIOVASCULAR: Regular rate and regular rhythm without murmurs, gallops, or rubs. RESPIRATORY: Clear to auscultation. Breath sounds equal bilaterally. No wheezes , rales, or rhonchi. GASTROINTESTINAL: Abdomen soft, mild RUQ tenderness, nondistended. Normal, active bowel sounds MUSCULOSKELETAL: Extremities without clubbing, cyanosis, or edema. NEURO: Alert & Oriented x4 to person, place, time, situation. Moves all ext x4 Procedures none Medications and IVs Current Medications Piperacillin Sod/ Tazobactam Sod (Zosyn 3.375 Gm Premix) 50 ml @ 100 mls/hr ONCE ONCE IV Last administered on 01/19/17t 18:00; Start 01/19/17 at 18:00; Stop 01/19/17 at 18:29; Status DC Ondansetron HCl 4 mg 4 mg ONCE ONCE IV PUSH Last administered on 01/19/17 18: 00; Start 01/19/17 at 18:00; Stop 01/19/17 at 18:01; Status DC Sodium Chloride (NS 1000 ml Inj) 1,000 ml @ 1,000 mls/hr Q1H IV Last administered on 01/19/17 17:58; Start 01/19/17 at 17:58; Stop 01/19/17 at 18:57 ; Status DC Morphine Sulfate (Morphine Inj) 3 mg ONCE ONCE IV PUSH Last administered on 19:00; Start 01/19/17 at 19:00; Stop 01/19/17 at 19:01; Status DC Pantoprazole Sodium 40 mg 40 mg Q12H IV PUSH Last administered on 01/20/17 08: 16; Start 01/19/17 at 21:00 Sodium Chloride (NS 1000 ml Inj) 1,000 ml @ 100 mls/hr Q10H IV Last administered on 01/20/17 06:25; Start 01/19/17 at 20:00 IV Flush (NS Flush) 2 ml UNSCH PRN FLUSH FLUSH AFTER USING IV ACCESS; Start 09/27 at 19:45 IV Flush (NS Flush) 2 ml BID FLUSH Last administered on 01/19/17 22:03; Start 01/19/17 at 21:00 Ondansetron HCl (Zofran Inj) 4 mg Q6H PRN IVP NAUSEA OR VOMITING Last administered on 01/20/17 06:27; Start 01/19/17 at 19:45 Bisacodyl (Dulcolax Supp) 10 mg DAILY PRN [place] CONSTIPATION; Start 01/19/17 at 19 :45 Acetaminophen (Tylenol) 650 mg Q6H PRN PO FEVER/PAIN SCALE 1 TO 2; Start at 19:45 Acetaminophen/ Hydrocodone Bitart ([place] 5-325 Mg) 1 tab Q4H PRN PO PAIN SCALE 3 TO 5; Start 01/19/17 at 19:45 Morphine Sulfate 2 mg 2 mg Q3H PRN IV Pain 6-10 Last administered on 01/20/17 09:43; Start 01/19/17 at 19:45 Piperacillin Sod/ Tazobactam Sod (Zosyn 4.5 Gm Premix) 100 ml @ 200 mls/hr Q6H IV Last administered on 01/20/17t 06:25; Start 01/20/17 at 00:00 Influenza Virus Vaccine (Flu (Quadrivalent) Vaccine Inj) 0.5 ml ONCE ONCE IM ; Start 01/20/17 at 09:00; Stop 01/20/17 at 09:01; Status DC A/P Assessment and Plan A/p - Cholecystitis: Gallbladder US w/ stones, wall thickening and surrounding fluid suggesting calculous cholecystitis Dr. Lockett consulted by ER physician, no emergent surgical intervention- possible cholecystectomy in am- continue Zosyn for empiric coverage. - Suicidal Ideation: brought to ER by Police under [place] Act for suicidal ideation, pt denies harming herself. Psych consulted for further eval. -hypokalemia; will replace. - Tobacco Abuse: Pt counselled. nicotine patch. - DVT Prophylaxis: SCD/Teds. Mirna Trejo MD Jan 20, 2017 09:59
[2017-01-20] MEDS ORDERED: POTASSIUM CHLORIDE 10 MEQ CONTROLLED RELEASE TAB PO ONE ×2 (10:30→14:00)
[2017-01-20] MEDS: NICOTINE 21 MG/24 HR PATCH TD SCH (10:39)
[2017-01-20 12:00] VITALS: BP 98/55; PULSE 57; RESP 16; TEMP 97.2; O2SAT 97
[2017-01-20] MEDS: ALPRAZolam 0.5 MG TAB PO PRN ×2 (13:20→22:20)
--- NOTE | 2017-01-20 15:52 | MB ---
cc: LEONARDO HOOVERDRA DATE OF CONSULTATION 01/20/2017 REASON FOR CONSULTATION This is a 36-year-old white female with a history of fibromyalgia, nausea, vomiting some substance abuse. She was brought to the emergency room under [place] act for suicidal ideation. The patient apparently had an argument with her fiance and shortly afterwards she text him that she was going to kill herself with overdose on sleeping pills. However, the patient at the present time denies that. She claimed that she was under a lot of stress because of the bike week and sometimes they had hard time staying in the apartment. She denies any active suicidal ideation, intentions or plans. Denies any auditory or visual hallucinations. She has been taking Xanax 2 mg once a day. She also has been complaining of some nausea, abdominal pain and vomiting and is going to go through the surgery for gallbladder. BACKGROUND HISTORY The patient was born in [place]. She has three brothers. She has been close to her mother and father. Her childhood was described as happy. She denied any physical, verbal or sexual abuse growing up. She did finish high school and college and technical school. She has been for almost 4 years, has no children. She did experiment with alcohol and drugs but not a problem. Denied any legal difficulty. PAST PSYCHIATRIC HISTORY Denied any inpatient psychiatric hospitalization. FAMILY HISTORY Positive for brother with being an addict and has been through the rehab. Has been diagnosed with bipolar. And mother is also worried about him. MENTAL STATUS EXAM This is a 36-year-old white female who looks about the same as her stated age. She was alert, oriented x3, cooperative, casually dressed. Her speech was clear, spontaneous without any evidence of loose associations or flight of ideas or pressured speech. Her mood was described as feeling fine now, mildly anxious. Her affect was appropriate. She denied any suicidal and/or homicidal ideation, intentions or plans. Denied any auditory or visual hallucinations. There was no evidence of any formed paranoid delusion. She seems to be of average intelligence with fairly good memory. Her insight is fair and judgment seems to be okay on hypothetical situation. IMPRESSION History of anxiety disorder. RECOMMENDATIONS At the present time the patient does not meet the [place] ACT criteria, so I will lift the Sheffield act as she is not suicidal, homicidal and/or psychotic. I will suggest that she may get the Xanax is 0.5 mg one p.r.n. twice a day for anxiety and can follow up as an outpatient upon discharge. Genaro LOPEZ /12:04 PM /2:38 PM
[2017-01-20 16:00] VITALS: BP 125/66; PULSE 71; RESP 16; TEMP 96.7; O2SAT 99
--- NOTE | 2017-01-20 16:04 | HHI.PR ---
Subjective Subjective Notes Still having RUQ pain Discussed Lap estee tomorrow Objective Vitals/I&O Vital Signs Date Time Temp Pulse Resp B/P Pulse Ox O2 Delivery O2 Flow Rate FiO2 01/20/17 12:00 97.2 57 16 98/55 97 01/19/17 20:30 Room Air Labs Laboratory Tests Test 01/19/17 01/19/17 01/20/17 17:00 19:20 04:41 White Blood Count 8.1 8.6 Red Blood Count 4.68 4.25 Hemoglobin 13.9 12.3 Hematocrit 40.6 37.1 Mean Corpuscular Volume 86.8 87.3 Mean Corpuscular Hemoglobin 29.8 29.0 Mean Corpuscular Hemoglobin 34.3 33.2 Concent Red Cell Distribution Width 14.2 13.7 Platelet Count 266 229 Mean Platelet Volume 9.5 9.6 Neutrophils (%) (Auto) 58.6 44.4 Lymphocytes (%) (Auto) 29.3 43.2 Monocytes (%) (Auto) 6.8 6.6 Eosinophils (%) (Auto) 4.1 4.6 Basophils (%) (Auto) 1.2 1.2 Neutrophils # (Auto) 4.7 3.8 Lymphocytes # (Auto) 2.4 3.7 Monocytes # (Auto) 0.5 0.6 Eosinophils # (Auto) 0.3 0.4 Basophils # (Auto) 0.1 0.1 CBC Comment DIFF FINAL DIFF FINAL Differential Comment Sodium Level 143 143 Potassium Level 3.4 3.2 Chloride Level 105 108 Carbon Dioxide Level 27.9 26.2 Anion Gap 10 9 Blood Urea Nitrogen 7 8 Creatinine 0.99 1.01 Estimat Glomerular Filtration 63 61 Rate Random Glucose 78 83 Calcium Level 8.7 7.9 Total Bilirubin 0.6 0.5 Aspartate Amino Transf 9 8 (AST/SGOT) Alanine Aminotransferase 17 15 (ALT/SGPT) Alkaline Phosphatase 63 51 Total Protein 6.9 5.9 Albumin 3.4 3.1 Salicylates Level LESS THAN 1.7 Acetaminophen Level LESS THAN 2.0 Ethyl Alcohol Level LESS THAN 3 Urine Opiates Screen NEG Urine Barbiturates Screen NEG Urine Amphetamines Screen NEG Urine Benzodiazepines Screen POS Urine Cocaine Screen POS Urine Cannabinoids Screen NEG Lungs: Clear Abdomen: Other (Tender RUQ, nontender epigastrium) A/P Assessment and Plan Assessment: Anxiety disorder/depression Cholecystitis, subacute Plan: Start Zoloft Lap estee 01/21 GAR discussed with patient; she vocalizes understanding and agrees to proceed. Memo Lockett MD Jan 20, 2017 16:04
[2017-01-20] MEDS ORDERED: SERTRALINE HCL 50 MG TAB PO ONE (17:15)
[2017-01-20 20:00] VITALS: BP 127/76; PULSE 65; RESP 21; TEMP 98.6; O2SAT 98
[2017-01-20 23:43] VITALS: BP 116/64; PULSE 98; RESP 20; TEMP 97.7; O2SAT 96
[2017-01-21] MEDS: PIPERACIL-TAZO 4.5 GM PREMIX 100 ML IV SCH ×3 (05:03→17:52)
[2017-01-21 08:00] VITALS: BP 119/56; PULSE 57; RESP 17; TEMP 98.4; O2SAT 98
[2017-01-21] MEDS: PANTOPRAZOLE SODIUM 40 MG VIAL IV PUSH SCH ×2 (08:39→21:59)
[2017-01-21] MEDS: SERTRALINE HCL 50 MG TAB PO SCH (08:39)
[2017-01-21] MEDS: SODIUM CHLORIDE 0.9% FLUSH 5 ML FLUSH FLUSH SCH ×2 (08:39→21:00)
[2017-01-21] MEDS: REMOVE OLD PATCH TD SCH (08:40)
[2017-01-21] MEDS: NICOTINE 21 MG/24 HR PATCH TD SCH (08:40)
[2017-01-21] MEDS ORDERED: ZOLO50TA PO (09:11)
[2017-01-21] MEDS ORDERED: ALPR.5 PO (09:11)
[2017-01-21] MEDS ORDERED: NORC5TAB PO (09:12)
--- NOTE | 2017-01-21 09:12 | HHI.DCPOC ---
Discharge Care Plan Diagnosis: (1) Cholecystitis (2) Suicidal ideation Your Health Problems Are: Anxiety Additional Problems abdominal pain. Goals to Promote Your Health * To prevent worsening of your condition and complications * To maintain your health at the optimal level Directions to Meet Your Goals Take your medications as prescribed Follow your dietary instruction Follow activity as directed Keep your appointments as scheduled Take your immunizations and boosters as scheduled If your symptoms worsen call your PCP, if no PCP go to Urgent Care Center or Emergency Room Smoking is Dangerous to Your Health. Avoid second hand smoke Call the 24-hour hour crisis hotline for domestic abuse at Mirna Trejo MD Jan 21, 2017 09:12
--- NOTE | 2017-01-21 09:15 | HHI.PR ---
Subjective Remarks resting comfortably with no distress. abdominal pain is mild. no nausea or vomiting. no fever. awaiting cholecystectomy. Objective Vitals Vital Signs Date Time Temp Pulse Resp B/P Pulse Ox O2 Delivery O2 Flow Rate FiO2 01/21/17 08:00 98.4 57 17 119/56 98 01/20/17 23:43 97.7 98 20 116/64 96 01/20/17 20:00 98.6 65 21 127/76 98 01/20/17 16:00 96.7 71 16 125/66 99 01/20/17 15:45 20 01/20/17 12:00 97.2 57 16 98/55 97 I/O 01/20/17 01/20/17 01/20/17 01/21/17 01/21/17 01/21/17 07:00 15:00 23:00 07:00 15:00 23:00 Intake Total 826 ml 958 ml 830 ml 1070 ml Balance 826 ml 958 ml 830 ml 1070 ml Intake Oral 120 ml 240 ml 240 ml 120 ml IV Total 706 ml 718 ml 590 ml 950 ml # Voids 2 4 2 3 # Bowel Movements 0 0 1 0 Result Diagram: 01/20/17 0441 01/20/17 0441 Imaging Last Impressions Gall Bladder Ultrasound 01/19/17 0000 Signed Impressions: Service Date/Time: Thursday, January 19, 2017 16:59 - CONCLUSION: Stones, wall thickening and surrounding fluid of the gallbladder suggesting calculus cholecystitis in the proper clinical setting.. No evidence of acute biliary obstruction. Other right upper quadrant structures are within normal limits. Ishmael Neumann MD Objective Remarks GENERAL: This is a well-nourished, well-developed patient, in no apparent distress. CARDIOVASCULAR: Regular rate and regular rhythm without murmurs, gallops, or rubs. RESPIRATORY: Clear to auscultation. Breath sounds equal bilaterally. No wheezes , rales, or rhonchi. GASTROINTESTINAL: Abdomen soft, mild RUQ tenderness, nondistended. Normal, active bowel sounds MUSCULOSKELETAL: Extremities without clubbing, cyanosis, or edema. NEURO: Alert & Oriented x4 to person, place, time, situation. Moves all ext x4 Procedures none Medications and IVs Current Medications Piperacillin Sod/ Tazobactam Sod (Zosyn 3.375 Gm Premix) 50 ml @ 100 mls/hr ONCE ONCE IV Last administered on 01/19/17 18:00; Start 01/19/17 at 18:00; Stop 01/19/17 at 18:29; Status DC Ondansetron HCl 4 mg 4 mg ONCE ONCE IV PUSH Last administered on 01/19/17 18: 00; Start 01/19/17 at 18:00; Stop 01/19/17 at 18:01; Status DC Sodium Chloride (NS 1000 ml Inj) 1,000 ml @ 1,000 mls/hr Q1H IV Last administered on 01/19/17 17:58; Start 01/19/17 at 17:58; Stop 01/19/17 at 18:57 ; Status DC Morphine Sulfate (Morphine Inj) 3 mg ONCE ONCE IV PUSH Last administered on 19:00; Start 01/19/17 at 19:00; Stop 01/19/17 at 19:01; Status DC Pantoprazole Sodium 40 mg 40 mg Q12H IV PUSH Last administered on 01/21/17 08: 39; Start 01/19/17 at 21:00 Sodium Chloride (NS 1000 ml Inj) 1,000 ml @ 100 mls/hr Q10H IV Last administered on 01/20/17 22:58; Start 01/19/17 at 20:00 IV Flush (NS Flush) 2 ml UNSCH PRN FLUSH FLUSH AFTER USING IV ACCESS; Start 09/27 at 19:45 IV Flush (NS Flush) 2 ml BID FLUSH Last administered on 01/21/17 08:39; Start 01/19/17 at 21:00 Ondansetron HCl (Zofran Inj) 4 mg Q6H PRN IVP NAUSEA OR VOMITING Last administered on 01/20/17 13:14; Start 01/19/17 at 19:45 Bisacodyl (Dulcolax Supp) 10 mg DAILY PRN [place] CONSTIPATION; Start 01/19/17 at 19 :45 Acetaminophen (Tylenol) 650 mg Q6H PRN PO FEVER/PAIN SCALE 1 TO 2; Start at 19:45 Acetaminophen/ Hydrocodone Bitart ([place] 5-325 Mg) 1 tab Q4H PRN PO PAIN SCALE 3 TO 5; Start 01/19/17 at 19:45 Morphine Sulfate 2 mg 2 mg Q3H PRN IV Pain 6-10 Last administered on 01/20/17 23:30; Start 01/19/17 at 19:45 Piperacillin Sod/ Tazobactam Sod (Zosyn 4.5 Gm Premix) 100 ml @ 200 mls/hr Q6H IV Last administered on 01/21/17 05:03; Start 01/20/17 at 00:00 Influenza Virus Vaccine (Flu (Quadrivalent) Vaccine Inj) 0.5 ml ONCE ONCE IM ; Start 01/20/17 at 09:00; Stop 01/20/17 at 09:01; Status DC Nicotine (Habitrol 21 Mg Patch.24 Hr) 1 patch DAILY TD Last administered on 08:40; Start 01/20/17 at 10:00 Miscellaneous Information 1 DAILY TD Last administered on 01/21/17 08:40; Start 01/21/17 at 09:00 Potassium Chloride (KCl) 30 meq ONCE ONCE PO Last administered on 01/20/17 10 :38; Start 01/20/17 at 10:30; Stop 01/20/17 at 10:31; Status DC Potassium Chloride (KCl) 30 meq ONCE ONCE PO Last administered on 01/20/17 13 :15; Start 01/20/17 at 14:00; Stop 01/20/17 at 14:01; Status DC Alprazolam (Xanax) 0.5 mg BID PRN PO anxiety. Last administered on 01/20/17 22 :20; Start 01/20/17 at 13:15 Sertraline HCl (Zoloft) 50 mg DAILY PO Last administered on 01/21/17 08:39; Start 01/21/17 at 09:00 Sertraline HCl (Zoloft) 50 mg NOW ONCE PO Last administered on 01/20/17 17:28 ; Start 01/20/17 at 17:15; Stop 01/20/17 at 17:16; Status DC A/P Assessment and Plan A/p - Cholecystitis: Gallbladder US w/ stones, wall thickening and surrounding fluid suggesting calculous cholecystitis Dr. Lockett consulted by ER physician,- possible cholecystectomy today- continue Zosyn for empiric coverage. - Suicidal Ideation: evaluated by psych- velázquez act was lifted and cleared for discharge- f/u as outpatient. -hypokalemia;replaced. - Tobacco Abuse: Pt counselled. nicotine patch. - DVT Prophylaxis: SCD/Teds. Discharge Planning when cleared by surgery. Mirna Trejo MD Jan 21, 2017 09:15
[2017-01-21] MEDS: SODIUM CHLOR 0.9% 1000 ML INJ 1,000 ML IV SCH ×2 (11:16→21:59)
[2017-01-21] MEDS: ONDANSETRON HCL 4 MG/2 ML VIAL IVP PRN ×2 (11:16→17:52)
[2017-01-21 12:00] VITALS: BP 123/68; PULSE 59; RESP 18; TEMP 97.8; O2SAT 99
[2017-01-21] MEDS: ALPRAZolam 0.5 MG TAB PO PRN (12:27)
[2017-01-21] MEDS: MORPHINE SULFATE 4 MG/ML INJ IV PRN ×3 (13:29→22:01)
--- NOTE | 2017-01-21 13:39 | HHI.PR ---
Subjective Subjective Notes Resting in bed Objective Vitals/I&O Vital Signs Date Time Temp Pulse Resp B/P Pulse Ox O2 Delivery O2 Flow Rate FiO2 01/21/17 12:00 97.8 59 18 123/68 99 01/19/17 20:30 Room Air Cardiovascular: Regular Lungs: Clear Abdomen: Non-distended, Non-tender Extremities: No edema A/P Assessment and Plan 36 year old female with acute cholecystitis -Plan for OR tomorrow for Lap estee -Heart healthy diet -NPO after midnight -Consents on chart Attending Note - Dr. Lockett Attempted to perform surgery today at 10am; informed no anesthesia available. Will attempt to perform surgery when undersigned next available. Will feed pt. today. The exam, history, and the medical decision-making described in the above note were completed with the assistance of the mid-level provider. I reviewed and agree with the findings presented. I attest that I had a [id number] encounter with the patient on the same day, and personally performed and documented my assessment and findings in the medical record. Cele Knight Jan 21, 2017 13:38 Memo Lockett MD Jan 21, 2017 21:37
[2017-01-21 16:00] VITALS: BP 118/61; PULSE 57; RESP 17; TEMP 97.8; O2SAT 98
[2017-01-21 20:00] VITALS: BP 126/74; PULSE 62; RESP 20; TEMP 98.2; O2SAT 99
[2017-01-22] VITALS: BP 122/72; PULSE 68; RESP 20; TEMP 97.6; O2SAT 98
[2017-01-22] MEDS: PIPERACIL-TAZO 4.5 GM PREMIX 100 ML IV SCH ×5 (00:40→22:53)
[2017-01-22] MEDS: ALPRAZolam 0.5 MG TAB PO PRN ×2 (00:47→13:28)
[2017-01-22] MEDS: ONDANSETRON HCL 4 MG/2 ML VIAL IVP PRN (00:47)
[2017-01-22] MEDS: MORPHINE SULFATE 4 MG/ML INJ IV PRN ×6 (00:49→20:42)
[2017-01-22 08:35] VITALS: BP 104/97; PULSE 55; RESP 18; TEMP 97.7; O2SAT 96
[2017-01-22] MEDS: SODIUM CHLORIDE 0.9% FLUSH 5 ML FLUSH FLUSH SCH ×2 (09:00→20:35)
[2017-01-22] MEDS: REMOVE OLD PATCH TD SCH (09:00)
[2017-01-22] MEDS: SERTRALINE HCL 50 MG TAB PO SCH (09:40)
[2017-01-22] MEDS: PANTOPRAZOLE SODIUM 40 MG VIAL IV PUSH SCH ×2 (09:46→20:35)
[2017-01-22] MEDS: SODIUM CHLOR 0.9% 1000 ML INJ 1,000 ML IV SCH ×3 (09:47→22:53)
[2017-01-22] MEDS: NICOTINE 21 MG/24 HR PATCH TD SCH (09:56)
[2017-01-22 12:00] VITALS: BP 113/69; PULSE 56; RESP 18; TEMP 97.9; O2SAT 98
--- NOTE | 2017-01-22 13:12 | HHI.PR ---
Subjective Remarks in no acute distress. has mild abdominal pain to the RUQ. had mild nausea earlier. no fever. Objective Vitals Vital Signs Date Time Temp Pulse Resp B/P Pulse Ox O2 Delivery O2 Flow Rate FiO2 01/22/17 08:35 97.7 55 18 104/97 96 01/22/17 00:00 97.6 68 20 122/72 98 01/21/17 20:00 98.2 62 20 126/74 99 01/21/17 16:00 97.8 57 17 118/61 98 I/O 01/21/17 01/21/17 01/21/17 01/22/17 01/22/17 01/22/17 06:59 14:59 22:59 06:59 14:59 22:59 Intake Total 1070 ml 863 ml 1233 ml 743 ml Output Total 600 ml 400 ml Balance 1070 ml 863 ml 633 ml 343 ml Intake Oral 120 ml 120 ml 480 ml 0 ml IV Total 950 ml 743 ml 753 ml 743 ml Output Urine Total 600 ml 400 ml # Voids 3 5 # Bowel Movements 0 0 0 0 Result Diagram: 01/20/17 0441 01/20/17 0441 Imaging Last Impressions Gall Bladder Ultrasound 01/19/17 0000 Signed Impressions: Service Date/Time: Thursday, January 19, 2017 16:59 - CONCLUSION: Stones, wall thickening and surrounding fluid of the gallbladder suggesting calculus cholecystitis in the proper clinical setting.. No evidence of acute biliary obstruction. Other right upper quadrant structures are within normal limits. Ishmael Neumann MD Objective Remarks GENERAL: This is a well-nourished, well-developed patient, in no apparent distress. CARDIOVASCULAR: Regular rate and regular rhythm without murmurs, gallops, or rubs. RESPIRATORY: Clear to auscultation. Breath sounds equal bilaterally. No wheezes , rales, or rhonchi. GASTROINTESTINAL: Abdomen soft, mild RUQ tenderness, nondistended. Normal, active bowel sounds MUSCULOSKELETAL: Extremities without clubbing, cyanosis, or edema. NEURO: Alert & Oriented x4 to person, place, time, situation. Moves all ext x4 Procedures none Medications and IVs Current Medications Piperacillin Sod/ Tazobactam Sod (Zosyn 3.375 Gm Premix) 50 ml @ 100 mls/hr ONCE ONCE IV Last administered on 01/19/17 18:00; Start 01/19/17 at 18:00; Stop 01/19/17 at 18:29; Status DC Ondansetron HCl 4 mg 4 mg ONCE ONCE IV PUSH Last administered on 01/19/17 18: 00; Start 01/19/17 at 18:00; Stop 01/19/17 at 18:01; Status DC Sodium Chloride (NS 1000 ml Inj) 1,000 ml @ 1,000 mls/hr Q1H IV Last administered on 01/19/17 17:58; Start 01/19/17 at 17:58; Stop 01/19/17 at 18:57 ; Status DC Morphine Sulfate (Morphine Inj) 3 mg ONCE ONCE IV PUSH Last administered on 19:00; Start 01/19/17 at 19:00; Stop 01/19/17 at 19:01; Status DC Pantoprazole Sodium 40 mg 40 mg Q12H IV PUSH Last administered on 01/22/17 09: 46; Start 01/19/17 at 21:00 Sodium Chloride (NS 1000 ml Inj) 1,000 ml @ 100 mls/hr Q10H IV Last administered on 01/22/17 09:47; Start 01/19/17 at 20:00 IV Flush (NS Flush) 2 ml UNSCH PRN FLUSH FLUSH AFTER USING IV ACCESS; Start 09/27 at 19:45 IV Flush (NS Flush) 2 ml BID FLUSH Last administered on 01/21/17 08:39; Start 01/19/17 at 21:00 Ondansetron HCl (Zofran Inj) 4 mg Q6H PRN IVP NAUSEA OR VOMITING Last administered on 01/22/17 00:47; Start 01/19/17 at 19:45 Bisacodyl (Dulcolax Supp) 10 mg DAILY PRN [place] CONSTIPATION; Start 01/19/17 at 19 :45 Acetaminophen (Tylenol) 650 mg Q6H PRN PO FEVER/PAIN SCALE 1 TO 2; Start at 19:45 Acetaminophen/ Hydrocodone Bitart ([place] 5-325 Mg) 1 tab Q4H PRN PO PAIN SCALE 3 TO 5; Start 01/19/17 at 19:45 Morphine Sulfate 2 mg 2 mg Q3H PRN IV Pain 6-10 Last administered on 01/22/17 09:38; Start 01/19/17 at 19:45 Piperacillin Sod/ Tazobactam Sod (Zosyn 4.5 Gm Premix) 100 ml @ 200 mls/hr Q6H IV Last administered on 01/22/17 05:34; Start 01/20/17 at 00:00 Influenza Virus Vaccine (Flu (Quadrivalent) Vaccine Inj) 0.5 ml ONCE ONCE IM ; Start 01/20/17 at 09:00; Stop 01/20/17 at 09:01; Status DC Nicotine (Habitrol 21 Mg Patch.24 Hr) 1 patch DAILY TD Last administered on 09:56; Start 01/20/17 at 10:00 Miscellaneous Information 1 DAILY TD Last administered on 01/21/17 08:40; Start 01/21/17 at 09:00 Potassium Chloride (KCl) 30 meq ONCE ONCE PO Last administered on 01/20/17 10 :38; Start 01/20/17 at 10:30; Stop 01/20/17 at 10:31; Status DC Potassium Chloride (KCl) 30 meq ONCE ONCE PO Last administered on 01/20/17 13 :15; Start 01/20/17 at 14:00; Stop 01/20/17 at 14:01; Status DC Alprazolam (Xanax) 0.5 mg BID PRN PO anxiety. Last administered on 01/22/17 00 :47; Start 01/20/17 at 13:15 Sertraline HCl (Zoloft) 50 mg DAILY PO Last administered on 01/22/17 09:40; Start 01/21/17 at 09:00 Sertraline HCl (Zoloft) 50 mg NOW ONCE PO Last administered on 01/20/17 17:28 ; Start 01/20/17 at 17:15; Stop 01/20/17 at 17:16; Status DC A/P Assessment and Plan A/p - Cholecystitis: Gallbladder US w/ stones, wall thickening and surrounding fluid suggesting calculous cholecystitis Dr. Lockett consulted by ER physician,- possible cholecystectomy tomorrow- continue Zosyn for empiric coverage. - Suicidal Ideation: evaluated by psych- velázquez act was lifted and cleared for discharge- f/u as outpatient. -hypokalemia;replaced. - Tobacco Abuse: Pt counselled. nicotine patch. - DVT Prophylaxis: SCD/Teds. Discharge Planning when cleared by surgery. Mirna Trejo MD Jan 22, 2017 13:12
--- NOTE | 2017-01-22 13:30 | HHI.PR ---
Subjective Subjective Notes Resting in bed Agrees to have surgery tomorrow Objective Vitals/I&O Vital Signs Date Time Temp Pulse Resp B/P Pulse Ox O2 Delivery O2 Flow Rate FiO2 01/22/17 12:00 97.9 56 18 113/69 98 01/19/17 20:30 Room Air Cardiovascular: Regular Lungs: Clear Abdomen: Non-distended, Non-tender Extremities: No edema A/P Assessment and Plan 36 year old female with acute cholecystitis -Plan for OR tomorrow for Lap estee -Heart healthy diet -NPO after midnight -Consents on chart -Discussed with RN Elizabeth Attending Note - Dr. Lockett As above; GAR discussed with patient, who vocalizes understanding once again and agrees to proceed. Abdomen unchanged The exam, history, and the medical decision-making described in the above note were completed with the assistance of the mid-level provider. I reviewed and agree with the findings presented. I attest that I had a [id number] encounter with the patient on the same day, and personally performed and documented my assessment and findings in the medical record. Cele Knight Jan 22, 2017 13:30 Memo Lockett MD Jan 24, 2017 19:16
[2017-01-22] MEDS: ACETAMINOPHEN/HYDROcodone 325 MG/5 MG TAB PO PRN (19:40)
[2017-01-22 20:00] VITALS: BP 130/78; PULSE 76; RESP 20; TEMP 98.2; O2SAT 97
[2017-01-23] VITALS (7 sets, daily range): BP systolic 96–120; BP diastolic 53–80; PULSE 48–78; RESP 10–20; TEMP 96.3–98; O2SAT 96–98
[2017-01-23] MEDS: ACETAMINOPHEN/HYDROcodone 325 MG/5 MG TAB PO PRN (00:41)
[2017-01-23] MEDS: ALPRAZolam 0.5 MG TAB PO PRN ×2 (00:42→16:42)
[2017-01-23] MEDS: MORPHINE SULFATE 4 MG/ML INJ IV PRN ×5 (04:32→21:32)
[2017-01-23] MEDS: PIPERACIL-TAZO 4.5 GM PREMIX 100 ML IV SCH ×3 (04:37→17:45)
[2017-01-23] MEDS: SODIUM CHLORIDE 0.9% FLUSH 5 ML FLUSH FLUSH SCH ×2 (09:00→21:31)
[2017-01-23] MEDS: REMOVE OLD PATCH TD SCH (09:00)
[2017-01-23] MEDS: SERTRALINE HCL 50 MG TAB PO SCH (09:00)
[2017-01-23] MEDS: NICOTINE 21 MG/24 HR PATCH TD SCH (09:00)
[2017-01-23] MEDS: SODIUM CHLOR 0.9% 1000 ML INJ 1,000 ML IV SCH (09:33)
[2017-01-23] MEDS: PANTOPRAZOLE SODIUM 40 MG VIAL IV PUSH SCH ×2 (09:38→21:31)
[2017-01-23] MEDS ORDERED: PROPOFOL 200 MG/20 ML AMP IV ONE (12:00)
[2017-01-23] MEDS ORDERED: ePHEDrine/NS 25 MG/5 ML SYR IV ONE (12:00)
[2017-01-23] MEDS ORDERED: NEOSTIGMINE 3 MG/3 ML SYR IV ONE (12:00)
[2017-01-23] MEDS ORDERED: ONDANSETRON HCL 4 MG/2 ML VIAL IV PUSH ONE (12:00)
[2017-01-23] MEDS ORDERED: KETOROLAC TROMETHAMINE 60 MG/2 ML (IM) VIAL IM ONE (12:00)
[2017-01-23] MEDS ORDERED: LACTATED RINGER'S 1000 ML INJ 1,000 ML IV ONE (12:00)
--- NOTE | 2017-01-23 12:40 | HHI.PR ---
Subjective Remarks in no acute distress. has some RUQ pain. no fever. Objective Vitals Vital Signs Date Time Temp Pulse Resp B/P Pulse Ox O2 Delivery O2 Flow Rate FiO2 01/23/17 08:08 96.3 48 18 108/54 96 01/23/17 08:00 96.3 48 10 108/54 96 01/23/17 04:00 98.0 72 18 120/80 97 01/23/17 01:41 18 01/23/17 00:00 97.8 78 20 118/72 96 01/22/17 20:47 18 01/22/17 20:00 98.2 76 20 130/78 97 I/O 01/22/17 01/22/17 01/22/17 01/23/17 01/23/17 01/23/17 07:00 15:00 23:00 07:00 15:00 23:00 Intake Total 743 ml 240 ml 2394 ml 0 ml Output Total 400 ml 1100 ml 450 ml Balance 343 ml 240 ml 1294 ml -450 ml Intake Oral 0 ml 240 ml 640 ml 0 ml IV Total 743 ml 1754 ml Output Urine Total 400 ml 1100 ml 450 ml # Voids 5 # Bowel Movements 0 1 1 0 Result Diagram: 01/20/17 0441 01/20/17 0441 Imaging Last Impressions Gall Bladder Ultrasound 01/19/17 0000 Signed Impressions: Service Date/Time: Thursday, January 19, 2017 16:59 - CONCLUSION: Stones, wall thickening and surrounding fluid of the gallbladder suggesting calculus cholecystitis in the proper clinical setting.. No evidence of acute biliary obstruction. Other right upper quadrant structures are within normal limits. Ishmael Neumann MD Objective Remarks GENERAL: This is a well-nourished, well-developed patient, in no apparent distress. CARDIOVASCULAR: Regular rate and regular rhythm without murmurs, gallops, or rubs. RESPIRATORY: Clear to auscultation. Breath sounds equal bilaterally. No wheezes , rales, or rhonchi. GASTROINTESTINAL: Abdomen soft, mild RUQ tenderness, nondistended. Normal, active bowel sounds MUSCULOSKELETAL: Extremities without clubbing, cyanosis, or edema. NEURO: Alert & Oriented x4 to person, place, time, situation. Moves all ext x4 Procedures none Medications and IVs Current Medications Piperacillin Sod/ Tazobactam Sod (Zosyn 3.375 Gm Premix) 50 ml @ 100 mls/hr ONCE ONCE IV Last administered on 01/19/17 18:00; Start 01/19/17 at 18:00; Stop 01/19/17 at 18:29; Status DC Ondansetron HCl 4 mg 4 mg ONCE ONCE IV PUSH Last administered on 01/19/17 18: 00; Start 01/19/17 at 18:00; Stop 01/19/17 at 18:01; Status DC Sodium Chloride (NS 1000 ml Inj) 1,000 ml @ 1,000 mls/hr Q1H IV Last administered on 01/19/17 17:58; Start 01/19/17 at 17:58; Stop 01/19/17 at 18:57 ; Status DC Morphine Sulfate (Morphine Inj) 3 mg ONCE ONCE IV PUSH Last administered on 19:00; Start 01/19/17 at 19:00; Stop 01/19/17 at 19:01; Status DC Pantoprazole Sodium 40 mg 40 mg Q12H IV PUSH Last administered on 01/23/17 09: 38; Start 01/19/17 at 21:00 Sodium Chloride (NS 1000 ml Inj) 1,000 ml @ 100 mls/hr Q10H IV Last administered on 01/23/17 09:33; Start 01/19/17 at 20:00 IV Flush (NS Flush) 2 ml UNSCH PRN FLUSH FLUSH AFTER USING IV ACCESS; Start 09/27 at 19:45 IV Flush (NS Flush) 2 ml BID FLUSH Last administered on 01/21/17 08:39; Start 01/19/17 at 21:00 Ondansetron HCl (Zofran Inj) 4 mg Q6H PRN IVP NAUSEA OR VOMITING Last administered on 01/22/17 00:47; Start 01/19/17 at 19:45 Bisacodyl (Dulcolax Supp) 10 mg DAILY PRN [place] CONSTIPATION; Start 01/19/17 at 19 :45 Acetaminophen (Tylenol) 650 mg Q6H PRN PO FEVER/PAIN SCALE 1 TO 2; Start at 19:45 Acetaminophen/ Hydrocodone Bitart ([place] 5-325 Mg) 1 tab Q4H PRN PO PAIN SCALE 3 TO 5 Last administered on 01/23/17 00:41; Start 01/19/17 at 19:45 Morphine Sulfate 2 mg 2 mg Q3H PRN IV Pain 6-10 Last administered on 01/23/17 09:33; Start 01/19/17 at 19:45 Piperacillin Sod/ Tazobactam Sod (Zosyn 4.5 Gm Premix) 100 ml @ 200 mls/hr Q6H IV Last administered on 01/23/17 12:00; Start 01/20/17 at 00:00 Influenza Virus Vaccine (Flu (Quadrivalent) Vaccine Inj) 0.5 ml ONCE ONCE IM ; Start 01/20/17 at 09:00; Stop 01/20/17 at 09:01; Status DC Nicotine (Habitrol 21 Mg Patch.24 Hr) 1 patch DAILY TD Last administered on 09:56; Start 01/20/17 at 10:00 Miscellaneous Information 1 DAILY TD Last administered on 01/23/17 09:00; Start 01/21/17 at 09:00 Potassium Chloride (KCl) 30 meq ONCE ONCE PO Last administered on 01/20/17 10 :38; Start 01/20/17 at 10:30; Stop 01/20/17 at 10:31; Status DC Potassium Chloride (KCl) 30 meq ONCE ONCE PO Last administered on 01/20/17 13 :15; Start 01/20/17 at 14:00; Stop 01/20/17 at 14:01; Status DC Alprazolam (Xanax) 0.5 mg BID PRN PO anxiety. Last administered on 01/23/17 00 :42; Start 01/20/17 at 13:15 Sertraline HCl (Zoloft) 50 mg DAILY PO Last administered on 01/22/17 09:40; Start 01/21/17 at 09:00 Sertraline HCl (Zoloft) 50 mg NOW ONCE PO Last administered on 01/20/17 17:28 ; Start 01/20/17 at 17:15; Stop 01/20/17 at 17:16; Status DC A/P Assessment and Plan A/p - Cholecystitis: Gallbladder US w/ stones, wall thickening and surrounding fluid suggesting calculous cholecystitis Dr. Lockett consulted by ER physician,- cholecystectomy today- continue Zosyn for empiric coverage. - Suicidal Ideation: evaluated by psych- velázquez act was lifted and cleared for discharge- f/u as outpatient. -hypokalemia;replaced. - Tobacco Abuse: Pt counselled. nicotine patch. - DVT Prophylaxis: SCD/Teds. Discharge Planning when cleared by surgery. Mirna Trejo MD Jan 23, 2017 12:40
[2017-01-23] MEDS: ONDANSETRON HCL 4 MG/2 ML VIAL IVP PRN (13:39)
[2017-01-23] MEDS ORDERED: BUPIVACAINE/EPINEPHRINE 0.5% PF 30 ML VIAL ONE (16:53)
[2017-01-23] MEDS ORDERED: ACETAMINOPHEN 1000 MG/100 ML VIAL IV ONE (18:00)
[2017-01-23] MEDS ORDERED: *ONDANSETRON 4 MG VIAL PERIprocedural Use ONLY ONE (18:54)
--- NOTE | 2017-01-23 18:58 | HHI.PR ---
cc: Memo Lockett MD Immediate Post Op Note Procedure Date: Jan 23, 2017 Pre Op Diagnosis: Acute cholecystitis Post Op Diagnosis: Same Surgeon: Memo Lockett Jewelry Jobber(s): Willard Bartlett MS3 Procedure: Laparoscopic cholecystectomy Findings: None Complications: None Specimen(s) removed: Gallbladder and stones to pathology. Estimated blood loss: <10 ml Anesthesia: General Drains: None IVF (900 ml) Patient to: PACU Patient Condition: Good Date/Time of Procedure: SEE SURGICAL CARE RECORD Memo Lockett MD Jan 23, 2017 18:58
[2017-01-23] MEDS ORDERED: fentaNYL CITRATE 250 MCG/5 ML AMP ONE (19:00)
[2017-01-23] MEDS ORDERED: ACETAMINOPHEN/HYDROcodone 325 MG/7.5 MG TAB PO PRN (19:00)
[2017-01-23] MEDS ORDERED: MORPHINE SULFATE 4 MG/ML INJ ONE ×3 (19:00→19:51)
[2017-01-23] MEDS ORDERED: HYDR-3288 PO (19:01)
[2017-01-23] MEDS ORDERED: PROMETHAZINE INJ 25 MG/ML VIAL ONE (19:15)
[2017-01-23] MEDS: ACETAMINOPHEN/HYDROcodone 325 MG/7.5 MG TAB PO PRN (22:37)
[2017-01-24] VITALS: BP 106/56; PULSE 63; RESP 21; TEMP 96.8; O2SAT 96
[2017-01-24] MEDS: MORPHINE SULFATE 4 MG/ML INJ IV PRN (02:27)
[2017-01-24] MEDS: SODIUM CHLOR 0.9% 1000 ML INJ 1,000 ML IV SCH ×2 (03:02→08:05)
[2017-01-24 04:00] VITALS: BP 98/54; PULSE 54; RESP 19; TEMP 96.9; O2SAT 94
[2017-01-24 08:00] VITALS: BP 122/72; PULSE 51; RESP 19; TEMP 95.1; O2SAT 98
[2017-01-24] MEDS: ACETAMINOPHEN/HYDROcodone 325 MG/7.5 MG TAB PO PRN ×3 (08:04→17:57)
[2017-01-24] MEDS: SODIUM CHLORIDE 0.9% FLUSH 5 ML FLUSH FLUSH SCH (08:05)
[2017-01-24] MEDS: NICOTINE 21 MG/24 HR PATCH TD SCH (08:05)
[2017-01-24] MEDS: PANTOPRAZOLE SODIUM 40 MG VIAL IV PUSH SCH (08:05)
[2017-01-24] MEDS: SERTRALINE HCL 50 MG TAB PO SCH (08:05)
[2017-01-24] MEDS: REMOVE OLD PATCH TD SCH (08:05)
[2017-01-24] MEDS: ALPRAZolam 0.5 MG TAB PO PRN (08:14)
[2017-01-24 10:09] VITALS: O2SAT 92
--- NOTE | 2017-01-24 10:13 | HHI.PR ---
Subjective Remarks F- u Cholecystitis; s/p lap estee 01/24/17-patient seen and examined, stable and afebrile. Tolerated by mouth without any competition nausea and vomiting. Increased urinary frequency Objective Vitals Vital Signs Date Time Temp Pulse Resp B/P Pulse Ox O2 Delivery O2 Flow Rate FiO2 01/24/17 09:04 18 01/24/17 08:00 95.1 51 19 122/72 98 01/24/17 04:00 96.9 54 19 98/54 94 01/24/17 00:00 96.8 63 21 106/56 96 01/23/17 20:30 98.4 51 14 119/66 97 Nasal Cannula 2 01/23/17 20:15 53 12 121/72 98 Nasal Cannula 2 01/23/17 20:00 96.8 50 19 112/58 96 01/23/17 20:00 50 14 107/63 98 Nasal Cannula 2 01/23/17 19:45 55 15 124/71 98 Nasal Cannula 2 01/23/17 19:30 51 14 124/71 97 Nasal Cannula 2 01/23/17 19:15 57 15 127/68 99 Nasal Cannula 2 01/23/17 19:10 68 16 150/72 98 Nasal Cannula 2 01/23/17 18:53 97.7 95 20 150/90 96 Nasal Cannula 2 01/23/17 16:00 96.3 54 12 111/58 98 01/23/17 12:00 97.7 49 14 96/53 98 I/O 01/23/17 01/23/17 01/23/17 01/24/17 01/24/17 01/24/17 07:00 15:00 23:00 07:00 15:00 23:00 Intake Total 0 ml 0 ml 1474 ml 1013 ml Output Total 450 ml 140 ml 1000 ml Balance -450 ml 0 ml 1334 ml 13 ml Intake Oral 0 ml 0 ml 290 ml 120 ml IV Total 84 ml 893 ml Other 1100 ml Output Urine Total 450 ml 100 ml 1000 ml Estimated Blood Loss 40 ml # Voids 8 1 # Bowel Movements 0 0 0 0 Result Diagram: 01/20/17 0441 01/20/17 0441 Imaging Last Impressions Gall Bladder Ultrasound 01/19/17 0000 Signed Impressions: Service Date/Time: Thursday, January 19, 2017 16:59 - CONCLUSION: Stones, wall thickening and surrounding fluid of the gallbladder suggesting calculus cholecystitis in the proper clinical setting.. No evidence of acute biliary obstruction. Other right upper quadrant structures are within normal limits. Ishmael Neumann MD Objective Remarks GENERAL: NAD SKIN: Warm and dry. HEAD: Normocephalic. EYES: No scleral icterus. No injection or drainage. NECK: Supple, trachea midline. No JVD or lymphadenopathy. CARDIOVASCULAR: Regular rate and rhythm without murmurs, gallops, or rubs. RESPIRATORY: Breath sounds equal bilaterally. No accessory muscle use. GASTROINTESTINAL: Abdomen soft, non-tender, nondistended. Incision c/d/i MUSCULOSKELETAL: No cyanosis, or edema. BACK: Nontender without obvious deformity. No CVA tenderness. Procedures s/p Laparoscopic cholecystectomy 01/23/17 A/P Problem List: (1) Intractable nausea and vomiting ICD Code: R11.2 Status: Acute (2) Cholecystitis ICD Code: K81.9 Status: Acute (3) Suicidal ideation ICD Code: R45.851 Status: Acute (4) Tobacco abuse ICD Code: Z72.0 Status: Acute Assessment and Plan 36yrs old female with - Cholecystitis: Gallbladder US w/ stones, wall thickening and surrounding fluid suggesting calculous cholecystitis Dr. Lockett consulted by ER physician,- s/p Laparoscopic cholecystectomy 01/23- continue Zosyn for empiric coverage. - Suicidal Ideation: evaluated by psych- velázquez act was lifted and cleared for discharge- f/u as outpatient. -hypokalemia;replaced. - Tobacco Abuse: Pt counselled. nicotine patch. - DVT Prophylaxis: SCD/Teds. Discharge Planning Okay for discharge Daniel Matta MD Jan 24, 2017 10:13
--- NOTE | 2017-01-24 10:45 | HHI.DS ---
Discharge Summary Admission Date Jan 19, 2017 at 19:34 Discharge Date: Jan 24, 2017 Admitting Diagnosis cholecystitis (1) Intractable nausea and vomiting ICD Code: R11.2 (2) Cholecystitis ICD Code: K81.9 (3) Suicidal ideation ICD Code: R45.851 (4) Tobacco abuse ICD Code: Z72.0 Procedures s/p Laparoscopic cholecystectomy 01/23/17 Brief History - From Admission This is a 36-year-old female with a PMH of Fibromyalgia, Anxiety, Tobacco Abuse and Substance Abuse was brought to the ER by Police under [place] Act for Suicidal Ideation. Patient apparently got into an argument with fei and shortly afterwards texted him and told him she was going to kill herself. Fei concerned she may attempt overdose on sleeping pills, however pt denies this. States she took her Xanax 2mg x1. On further examination, pt relays having ongoing abdominal pain, nausea and vomiting x2 months, symptoms progressively more severe over last 1wk. Seen in ER on 01/18/17 for abdominal pain, nausea/ vomiting, s/p Zofran/Toradol w/ improvement, bedside US negative for stones of gallbladder wall thickening per ER doc note, d/c'd home w/ Zofran and referral to Gen Surgery. Reports symptoms persistent. On arrival, BP 133/83, HR 89, O2 sat 99% on RA, Afebrile. CBC unremarkable. K+ 3.4. LFTs normal. U/a negative for UTI. US Gallbladder w/ stones, wall thickening and surrounding fluid suggestive of calculous cholecystitis. Dr. Lockett consulted by ER physician, will evaluate, no emergent surgical intervention at this time. S/p Zofran and Zosyn in ER, symptoms improved. CBC/BMP: 01/20/17 0441 01/20/17 0441 Imaging Last Impressions Gall Bladder Ultrasound 01/19/17 0000 Signed Impressions: Service Date/Time: Thursday, January 19, 2017 16:59 - CONCLUSION: Stones, wall thickening and surrounding fluid of the gallbladder suggesting calculus cholecystitis in the proper clinical setting.. No evidence of acute biliary obstruction. Other right upper quadrant structures are within normal limits. Ishmael Neumann MD PE at Discharge GENERAL: NAD SKIN: Warm and dry. HEAD: Normocephalic. EYES: No scleral icterus. No injection or drainage. NECK: Supple, trachea midline. No JVD or lymphadenopathy. CARDIOVASCULAR: Regular rate and rhythm without murmurs, gallops, or rubs. RESPIRATORY: Breath sounds equal bilaterally. No accessory muscle use. GASTROINTESTINAL: Abdomen soft, non-tender, nondistended. Incision c/d/i MUSCULOSKELETAL: No cyanosis, or edema. BACK: Nontender without obvious deformity. No CVA tenderness. Hospital Course - Cholecystitis: Gallbladder US w/ stones, wall thickening and surrounding fluid suggesting calculous cholecystitis. General surgery was consulted and patient underwent lap cholecystectomy on 01/23/17. She was treated with Zosyn for empiric coverage. Secondary to suicidal ideation, psychiatry was consulted however [place] act was lifted. All electrolyte abnormalities were corrected accordingly. Vital remained stable prior to discharge. DVT and GI prophylaxis provided. Pt Condition on Discharge: Fair Discharge Disposition: Discharge Home Discharge Time: <= 30 minutes Discharge Instructions DIET: Follow Instructions for: Heart Healthy Diet Activities you can perform: Regular-No Restrictions Follow up Referrals: PCP Follow-up Psychiatry Adult New Medications: Hydrocodone-Acetaminophen ([place]) 5-325 mg Tab 1 TAB PO Q6H PRN PAIN #14 Ref 0 TAB Hydrocodone-Acetaminophen ([place]) 7.5-325 mg Tab 1-2 TAB PO Q4H PRN PAIN #25 Ref 0 TAB Alprazolam (Xanax) 0.5 Mg Tab 0.5 MG PO BID PRN anxiety. #10 Ref 0 TAB Sertraline (Zoloft) 50 Mg Tab 50 MG PO DAILY depression Days 14 Ref 0 TAB Continued Medications: Ondansetron Odt (Zofran Odt) 4 Mg Tab 4 MG SL Q6HR PRN Nausea/Vomiting #30 Ref 0 TAB Discontinued Medications: Alprazolam (Xanax) 2 Mg Tab 2 MG PO DAILY PRN ANXIETY Ref 0 TAB Ibuprofen (Advil) 200 Mg Tab 800 MG PO TID PRN PAIN Ref 0 TAB Melatonin (Gnp Melatonin) 3 Mg Tab 3 MG PO HS Daniel Matta MD Jan 24, 2017 10:44
[2017-01-24 12:00] VITALS: BP 112/62; PULSE 54; RESP 19; TEMP 96.2; O2SAT 98
[2017-01-24 13:32] VITALS: RESP 18
--- NOTE | 2017-01-24 19:18 | HHI.PR ---
Subjective Subjective Notes Feels much better today; tolerating diet. No BM yet, but no nausea or significant pain. Objective Vitals/I&O Vital Signs Date Time Temp Pulse Resp B/P Pulse Ox O2 Delivery O2 Flow Rate FiO2 01/24/17 13:32 18 01/24/17 12:00 96.2 54 112/62 98 01/24/17 10:09 21 01/23/17 20:30 Nasal Cannula 2 Lungs: Clear Abdomen: Non-distended, Post-op tenderness Narrative Exam Ecchymosis at umbilicus Steristrips dry and intact. A/P Assessment and Plan POD #1 Lap cholecystectomy, doing well D/C home F/U my office one week. D/C instructions given. Memo Lockett MD Jan 24, 2017 19:18
--- NOTE | 2017-01-27 20:29 | MP ---
cc: MEMO LOCKETT M.D. DATE OF SURGERY: 01/23/2017 PREOPERATIVE DIAGNOSIS: Acute cholecystitis. POSTOPERATIVE DIAGNOSIS: Acute cholecystitis. PROCEDURE PERFORMED: Laparoscopic cholecystectomy ANESTHESIA: General endotracheal. SURGEON: Memo Lockett MD. SAGGER SOAK: Willard Bartlett MS-3. ESTIMATED BLOOD LOSS: Less than 10 mL. FLUIDS: 900 mL crystalloid. COMPLICATIONS: None. DRAINS: None. SPECIMEN: Gallbladder and stones to pathology. FINDINGS: Chronic inflammation around the gallbladder. DESCRIPTION OF THE PROCEDURE IN DETAIL: The patient was taken to the operating room and placed on the operating table in the supine position. After an adequate level of general endotracheal anesthesia was achieved, the abdomen was prepped and draped in the usual fashion. Time-out was taken confirming the correct patient, site and procedure to be performed. Incision was made in the umbilicus and carried through the fascia sharply after injecting with local anesthetic. The peritoneal cavity was directly visualized. A 12 mm balloon trocar was inserted and the balloon inflated. The abdomen was insufflated. The patient was placed in reverse Trendelenburg position. The upper abdomen was visualized. Three 5 mm trocars were then inserted with the first to the right of the falciform ligament and second and third in the right subcostal region. All entered the abdominal cavity under direct vision uneventfully. The fundus of the gallbladder was then grasped and retracted up and over the dome of the liver. The cystic duct infundibular junction and cystic artery were both circumferentially dissected. The cystic artery was doubly clipped proximally, singly clipped on the gallbladder side and divided. The cystic duct was doubly clipped distally, singly clipped on the gallbladder side and divided as well. As anatomy was clearly identified, and as the patient's liver function tests were within normal limits, cholangiogram was not obtained. In addition, the common duct was not dilated. The gallbladder was dissected off the liver bed with electrodissection. The gallbladder was placed into an EndoCatch device and removed via the umbilical port while observing via the upper 5 mm trocar site. The upper abdomen was visualized. The liver bed cystic, artery stump and cystic duct stump were all seen to be clean and dry. Insufflation was discontinued and the upper abdominal trocars were removed under direct vision. No bleeding was noted from the trocar sites. The laparoscope and umbilical port were removed. The fascia was closed in the umbilicus with 0 Vicryl suture in both a simple interrupted and [id number] fashion. The remaining local anesthetic was injected into each of the port sites. The skin was closed at each of the port sites with 4-0 Vicryl in an interrupted buried fashion. All trocar sites were dressed with Steri-Strips. The patient was extubated and taken back to the recovery room in stable condition. She tolerated the procedure well. MD MITCHEL Montano/LUCIO /5:27 PM /8:26 PM ALANA
== END 2017-01-24 18:31 | disposition home or self-care (01) | DRG 418 ==
LOC: NEPC 15:56 → NEDA 19:34 → N07A 23:08
PROVIDERS: ADMIT Hospitalist; ATTEND Hospitalist
PROC: 0FT44ZZ Resection of Gallbladder, Percutaneous Endoscopic Approach (ICD-10-PCS; principal; 2017-01-23 17:22)
DX: K80.12 Calculus of gallbladder with acute and chronic cholecystitis without obstruction (principal); R45.851 Suicidal ideations; F32.9 Major depressive disorder, single episode, unspecified; M79.7 Fibromyalgia; K21.9 Gastro-esophageal reflux disease without esophagitis; Z87.442 Personal history of urinary calculi; F17.210 Nicotine dependence, cigarettes, uncomplicated; F41.9 Anxiety disorder, unspecified; E87.6 Hypokalemia; R35.0 Frequency of micturition
CPT/HCPCS: 76705; 80053; 80307; 85025; 88304; 96361; 96374; 96375; C9113; J0131; J1885; J2270; J2405; J2543; J2550; J2710; J3010; J7030; J7120

== ENCOUNTER 2017-06-11 18:59 | Emergency (ER) | payer OTHER ==
[~2017-06-11] VITALS: Ht 167.6 cm; Wt 85.0 kg
[~2017-06-11 18:59] MED LIST changes: +ALPR.5 PO; +HYDR-3288 PO; +NORC5TAB PO; -XANA2TAB2 PO; +ZOLO50TA PO
[2017-06-11 19:08] VITALS: BP 135/75; PULSE 88; RESP 18; TEMP 98; O2SAT 97
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
[2017-06-11] MEDS ORDERED: GABA600T PO (19:40)
[2017-06-11] MEDS ORDERED: ROBA500T PO (19:40)
[2017-06-11 20:09] LABS: AUTOMATED NEUTROPHIL # 7.1 TH/MM3 (1.8-7.7); BASOPHIL # 0.1 TH/MM3 (0-0.2); BASOPHIL % 1.2 % (0.0-2.0); EOSINOPHIL # 0.1 TH/MM3 (0-0.4); EOSINOPHIL % 1.1 % (0.0-4.0); HEMATOCRIT 45.3 % (35.0-46.0); HEMO FLAGS DIFF FINAL; LYMPH % 27.3 % (9.0-44.0); LYMPHOCYTE # 3.1 TH/MM3 (1.0-4.8); MEAN CORPUSCULAR HEMOGLOBIN 29.7 PG (27.0-34.0); MEAN CORPUSCULAR HGB CONC 32.7 % (32.0-36.0); MONO % 6.9 % (0.0-8.0); NEUT % 63.5 % (16.0-70.0); PLATELET COUNT 297 TH/MM3 (150-450); RED BLOOD COUNT 4.97 MIL/MM3 (4.00-5.30); RED CELL DISTRIBUTION WIDTH 15.4 % (11.6-17.2); WHITE BLOOD COUNT 11.2 TH/MM3 (4.0-11.0)
[2017-06-11 20:31] LABS: AMPHETAMINE, URINE NEG (NEG); BARBITURATES, URINE NEG (NEG); COCAINE, URINE POS (NEG)
[2017-06-11 20:55] LABS: ANION GAP 9 MEQ/L (5-15); AST (GOT) 17 U/L (15-37); BICARBONATE 22.9 MEQ/L (21.0-32.0); BLOOD UREA NITROGEN 13 MG/DL (7-18); CHLORIDE 107 MEQ/L (98-107); GLOMERULAR FILTRATION RATE 61 ML/MIN (>89); SODIUM (NA) 139 MEQ/L (136-145)
[2017-06-11 20:56] LABS: ALT (GPT) 29 U/L (10-53)
[2017-06-11 20:58] LABS: ALKALINE PHOSPHATASE 59 U/L (45-117); TOTAL BILIRUBIN ADULT 0.4 MG/DL (0.2-1.0)
[2017-06-11 23:34] VITALS: BP 109/61; PULSE 54; RESP 18; O2SAT 99
[2017-06-12 02:27] VITALS: BP 104/60; PULSE 63; RESP 18
[2017-06-12 06:10] VITALS: BP 102/59; PULSE 58; RESP 20
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
== END 2017-06-12 14:07 | disposition home or self-care (01) ==
LOC: NEPD 18:59 → NEPJ 06-12 14:07
DX: T65.92XA Toxic effect of unspecified substance, intentional self-harm, initial encounter (principal); R45.851 Suicidal ideations; F43.25 Adjustment disorder with mixed disturbance of emotions and conduct; F14.10 Cocaine abuse, uncomplicated; Z72.0 Tobacco use; Z79.899 Other long term (current) drug therapy; Z87.39 Personal history of other diseases of the musculoskeletal system and connective tissue; Z87.19 Personal history of other diseases of the digestive system; Z87.442 Personal history of urinary calculi; Z86.69 Personal history of other diseases of the nervous system and sense organs; Z87.42 Personal history of other diseases of the female genital tract
CPT/HCPCS: 80053; 80307; 85025; 99284